=== PATIENT | male | born 1990 | race American Indian/Alaskan Native ===

== ENCOUNTER 2016-05-14 14:00 | Emergency (ER) | payer OTHER ==
[2016-05-14 14:16] VITALS: BP 134/88
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
== END 2016-05-14 20:13 | disposition home or self-care (01) ==
LOC: ED 14:00
DX: S39.012A Strain of muscle, fascia and tendon of lower back, initial encounter (principal); R51 Headache; V49.59XA Passenger injured in collision with other motor vehicles in traffic accident, initial encounter; Y93.9 Activity, unspecified; Y92.9 Unspecified place or not applicable; Y99.9 Unspecified external cause status
CPT/HCPCS: 99282

== ENCOUNTER 2017-04-04 03:25 | Emergency (ER) | payer SELFPAY ==
[2017-04-04 03:50] VITALS: BP 120/75
[2017-04-04] MEDS ORDERED: TORADOL IM ONE (04:06)
--- NOTE | 2017-04-04 04:10 | Emergency Department Report ---
ED ENT HPI - General Chief complaint: Dental/Oral Stated complaint: TOOTHACHE Time Seen by Provider: 04/04/17 04:03 Source: patient Mode of arrival: Ambulatory Limitations: No Limitations - History of Present Illness Initial comments: This is a 26-year-old male nontoxic, well nourished in appearance, no acute signs of distress presents to the ED with c/o of toothache x1 week. Patient denies any trauma to the region. Denies any facial swelling, difficulty breathing, nausea, vomiting, chest pain, breath, headache, stiff neck, fever, chills, numbness or tingling. Patient denies falling up with a dentist. Denies any allergies. Past medical history includes hypertension that he currently takes medication and follow-up with primary care doctor. MD complaint: tooth pain -: week(s) (1) Location: tooth # 1 - toothache Severity: mild Severity scale (0 -10): 8 Quality: aching Consistency: constant Improves with: none Worsens with: none Context- Dental: history of dental caries, poor dental care Associated Symptoms: gum swelling, toothache. denies: fever, cough, pain with swallowing, sore throat, tinnitus, hearing loss, discharge from ear, rhinorrhea - Related Data Previous Rx's Medication Instructions Recorded Last Taken Type Ibuprofen [Motrin] 600 mg PO Q8H PRN #15 tablet 05/14/16 Unknown Rx traMADol [Ultram] 50 mg PO Q6HR PRN #20 tablet 05/14/16 Unknown Rx Amoxicillin/K Clav Tab [Augmentin 1 tab PO Q12HR #20 tab 04/04/17 Unknown Rx 875 mg] traMADol [Ultram] 50 mg PO Q6HR PRN #12 tablet 04/04/17 Unknown Rx Allergies Allergy/AdvReac Type Severity Reaction Status Date / Time No Known Allergies Allergy Verified 04/04/17 03:46 ED Dental HPI - General Chief complaint: Dental/Oral Stated complaint: TOOTHACHE Time Seen by Provider: 04/04/17 04:03 Source: patient Mode of arrival: Ambulatory Limitations: No Limitations - Related Data Previous Rx's Medication Instructions Recorded Last Taken Type Ibuprofen [Motrin] 600 mg PO Q8H PRN #15 tablet 05/14/16 Unknown Rx traMADol [Ultram] 50 mg PO Q6HR PRN #20 tablet 05/14/16 Unknown Rx Amoxicillin/K Clav Tab [Augmentin 1 tab PO Q12HR #20 tab 04/04/17 Unknown Rx 875 mg] traMADol [Ultram] 50 mg PO Q6HR PRN #12 tablet 04/04/17 Unknown Rx Allergies Allergy/AdvReac Type Severity Reaction Status Date / Time No Known Allergies Allergy Verified 04/04/17 03:46 ED Review of Systems ROS: Stated complaint: TOOTHACHE Other details as noted in HPI Constitutional: denies: chills, fever Eyes: denies: eye pain, eye discharge, vision change ENT: dental pain. denies: ear pain, throat pain Respiratory: denies: cough, shortness of breath, wheezing Cardiovascular: denies: chest pain, palpitations Endocrine: no symptoms reported Gastrointestinal: denies: abdominal pain, nausea, diarrhea Genitourinary: denies: urgency, dysuria Musculoskeletal: denies: back pain, joint swelling, arthralgia Skin: denies: rash, lesions Neurological: denies: headache, weakness, paresthesias Psychiatric: denies: anxiety, depression Hematological/Lymphatic: denies: easy bleeding, easy bruising ED Past Medical Hx - Past Medical History Previous Medical History?: No - Surgical History Past Surgical History?: No - Social History Smoking Status: Current Every Day Smoker Substance Use Type: Alcohol - Medications Home Medications: Home Medications Medication Instructions Recorded Confirmed Last Taken Type Ibuprofen [Motrin] 600 mg PO Q8H PRN #15 tablet 05/14/16 Unknown Rx traMADol [Ultram] 50 mg PO Q6HR PRN #20 tablet 05/14/16 Unknown Rx Amoxicillin/K Clav Tab [Augmentin 1 tab PO Q12HR #20 tab 04/04/17 Unknown Rx 875 mg] traMADol [Ultram] 50 mg PO Q6HR PRN #12 tablet 04/04/17 Unknown Rx ED Physical Exam - General Limitations: No Limitations General appearance: alert, in no apparent distress - Head Head exam: Present: atraumatic, normocephalic - Eye Eye exam: Present: normal appearance, PERRL, EOMI. Absent: scleral icterus, conjunctival injection, nystagmus, periorbital swelling, periorbital tenderness Pupils: Present: normal accommodation - ENT ENT exam: Present: normal exam, normal orophraynx, mucous membranes moist, TM's normal bilaterally, normal external ear exam - Expanded ENT Exam Expanded Ear exam: Present: normal external inspection Mouth exam: Present: normal external inspection, tongue normal. Absent: drooling, trismus, muffled voice, tongue elevation, laceration Teeth exam: Present: dental caries, fractured tooth # (16), dental tenderness # (16), gingival enlargement, other (no swelling or abscesses noted.) Throat exam: Positive: normal inspection. Negative: tonsillar erythema, tonsillomegaly, tonsillar exudate, R peritonsillar mass, L peritonsillar mass - Neck Neck exam: Present: normal inspection - Respiratory Respiratory exam: Present: normal lung sounds bilaterally. Absent: respiratory distress, wheezes, rales, rhonchi, stridor, chest wall tenderness, accessory muscle use, decreased breath sounds, prolonged expiratory - Cardiovascular Cardiovascular Exam: Present: regular rate, normal rhythm, normal heart sounds. Absent: bradycardia, tachycardia, irregular rhythm, systolic murmur, diastolic murmur, rubs, gallop - GI/Abdominal GI/Abdominal exam: Present: soft, normal bowel sounds. Absent: distended, tenderness, guarding, rebound, rigid, diminished bowel sounds - Rectal Rectal exam: Present: deferred - Extremities Exam Extremities exam: Present: normal inspection, full ROM, normal capillary refill. Absent: tenderness, pedal edema, joint swelling, calf tenderness - Back Exam Back exam: Present: normal inspection, full ROM. Absent: tenderness, CVA tenderness (R), muscle spasm, paraspinal tenderness, vertebral tenderness, rash noted - Neurological Exam Neurological exam: Present: alert, oriented X3, CN II-XII intact, normal gait, reflexes normal - Psychiatric Psychiatric exam: Present: normal affect, normal mood - Skin Skin exam: Present: warm, dry, intact, normal color. Absent: rash ED Course Vital Signs 04/04/17 03:46 Temperature 98 F Pulse Rate 65 Respiratory 16 Rate Blood Pressure 120/75 O2 Sat by Pulse 98 Oximetry - Reevaluation(s) Reevaluation #1: 04/04/17 04:10 Patient is speaking in full sentences with no signs of distress noted. ED Medical Decision Making - Medical Decision Making This is a 26-year-old male that presents with dental caries and gingivitis. Patient stable and was examined by me. Patient states Toradol 30 mg IM to ED. Patient received Augmentin at discharge. There is no signs of any cellulitis or abscess formation upon examination. Patient was instructed Follow-up with a primary care doctor/dentist in 3-5 days or if symptoms worsen and continue return to emergency room as soon as possible. At time time of discharge, the patient does not seem toxic or ill in appearance. No acute signs of distress noted. Patient agrees to discharge treatment plan of care. No further questions noted by the patient. Patient received Ultram at discharge and was instructed not to operate any machinery while taking Ultram due to drowsiness. Critical care attestation.: If time is entered above; I have spent that time in minutes in the direct care of this critically ill patient, excluding procedure time. ED Disposition Clinical Impression: Dental caries, Gingivitis Disposition: - TO HOME OR SELFCARE Is pt being admited?: No Does the pt Need Aspirin: No Condition: Stable Instructions: Amoxicillin/Clavulanate Potassium (By mouth), Tramadol (By mouth) , Dental Caries (ED), Gingivitis (ED) Additional Instructions: Follow-up with a primary care doctor/dentist in 3-5 days or if symptoms worsen and continue return to emergency room as soon as possible. Do not operate any machinery while taking the Ultram due to drowsiness. Prescriptions: Amoxicillin/K Clav Tab [Augmentin 875 mg] 1 tab PO Q12HR #20 tab traMADol [Ultram] 50 mg PO Q6HR PRN #12 tablet PRN Reason: Pain Referrals: CHAMP DIEZ MD [Staff Physician] - 3-5 Days PRIMARY CARE, [Referring] - 3-5 Days [facility] [Outside] - 3-5 Days Forms: Work/School Release Form(ED)
== END 2017-04-04 04:25 | disposition home or self-care (01) ==
LOC: ED 03:25
DX: K02.9 Dental caries, unspecified (principal); K05.10 Chronic gingivitis, plaque induced; F17.200 Nicotine dependence, unspecified, uncomplicated
CPT/HCPCS: 96372; 99282; J1885

== ENCOUNTER 2019-04-26 19:32 | Emergency (ER) | payer SELFPAY ==
[2019-04-26 20:17] VITALS: BP 152/73
--- NOTE | 2019-04-26 20:17 | Emergency Department Report ---
Blank Doc - Documentation Documentation: 28-year-old male that presents with abdominal pain and n/v. This initial assessment/diagnostic orders/clinical plan/treatment(s) is/are subject to change based on patient's health status, clinical progression and re- assessment by fellow clinical providers in the ED. Further treatment and workup at subsequent clinical providers discretion. Patient/guardians urged not to elope from the ED as their condition may be serious if not clinically assessed and managed. Initial orders include: 1- Patient sent to [facility] for further evaluation and treatment 2- labs 3- UA
[2019-04-26 21:30] LABS: Basophils # (Auto) 0.1 K/mm3 (0.0-0.1); Basophils % (Auto) 0.7 % (0.0-1.8); Eosinophils # (Auto) 0.1 K/mm3 (0.0-0.4); Eosinophils % (Auto) 0.9 % (0.0-4.3); Hematocrit 47.7 % (35.5-45.6); Hemoglobin 16.6 gm/dl (11.8-15.2); Lymphocytes # (Auto) 1.7 K/mm3 (1.2-5.4); Lymphocytes % (Auto) 23.9 % (13.4-35.0); Mean Corpuscular HGB Conc 35 % (32-34); Mean Corpuscular Volume 92 fl (84-94); Monocytes # (Auto) 0.6 K/mm3 (0.0-0.8); Monocytes % (Auto) 7.8 % (0.0-7.3); Platelet Count 249 K/mm3 (140-440); Red Blood Count 5.19 M/mm3 (3.65-5.03)
[2019-04-26 22:00] LABS: Alanine Aminotransferase 20 units/L (7-56); Albumin 3.5 g/dL (3.9-5); BUN/Creatinine Ratio 6; Blood Urea Nitrogen 7 mg/dL (9-20); Calcium 9.1 mg/dL (8.4-10.2); Hemolysis Index 58
[2019-04-26 22:22] LABS: Bilirubin,Urine NEG (Negative); Color,Urine Amber (Yellow)
[2019-04-26 22:23] LABS: Blood,Urine NEG (Negative); Mucus,Urine 3+ /HPF; Protein,Urine <15 mg/dL mg/dL (Negative); Urobilinogen,Urine < 2.0 mg/dL (<2.0)
[2019-04-27] MEDS ORDERED: SODIUM CHLORIDE 0.9% 1000 ML 1,000 ML IV ONE (00:16)
[2019-04-27] MEDS ORDERED: ONDANSETRON 4 MG/2 ML INJ IV ONE (00:16)
[2019-04-27] MEDS ORDERED: MORPHINE 4 MG/1 ML INJ IV ONE (00:55)
[2019-04-27] MEDS ORDERED: MORPHINE 4 MG/1 ML INJ ONE (00:56)
--- NOTE | 2019-04-27 01:21 | Cat Scan Report ---
CT ABDOMEN AND PELVIS WITHOUT CONTRAST INDICATION: Upper abdominal pain, nausea and vomiting. TECHNICAL: Multiple axial CT images of the abdomen and pelvis were acquired without intravenous contr ast. Sagittal and coronal reformats were obtained. All CTs at this facility utilize dose reduction techniques including automated exposure control, iterative reconstruction and weight based dosing whe n appropriate to reduce patient radiation dose to as low as reasonable achievable. COMPARISON: None FINDINGS: Limited imaging of the bilateral lung bases demonstrates no acute abnormality. Abdomen: The liver, spleen, gallbladder, pancreas, bilateral adrenal glands and bilateral kidneys katelyn w no evidence of acute abnormality. There is no evidence of bowel obstruction. No free air is identif ied. The appendix is visualized and appears normal. Pelvis: No free fluid is seen within the pelvis. The urinary bladder appears normal. Bones and Soft Tissues: Evaluation of bony structures demonstrates no evidence of acute bony abnorma lity. There are a few subcentimeter indeterminate sclerotic lesions within the left iliac wing, the l argest of which measures 5 mm. Evaluation of soft tissue structures demonstrates no acute soft tissue abnormality. IMPRESSION: 1. No CT evidence of acute inflammatory or obstructive process within the abdomen or pelvis. Signer Name: Jennifer Valencia MD Signed: 04/27/2019 1:16 AM Workstation Name: [id number]
--- NOTE | 2019-04-27 01:39 | Emergency Department Report ---
ED Abdominal Pain HPI - General Chief Complaint: Abdominal Pain Stated Complaint: STOMACH PAIN Time Seen by Provider: 04/26/19 20:15 Source: patient Mode of arrival: Ambulatory Limitations: No Limitations - History of Present Illness Initial Comments: Ms. Espana is a 28 y/o aam who -presents fort abd pain periumbilical that radiates to LLQ x 1 week, symptoms are exacerbated by eating, symptoms are relieved by rest. pt denies fever or chills. Last n/v yesterday, last po intake lunch time today. last n/v 3 pm Complaint: abdominal pain Onset/Timin -: week(s) Location: periumbilical Radiation: LLQ Severity: moderate Severity scale (0 -10): 5 Quality: aching Consistency: constant Improves With: nothing Worsens With: eating Associated Symptoms: nausea, vomiting. denies: diarrhea, constipation, melena - Related Data Previous Rx's Medication Instructions Recorded Last Taken Type Ibuprofen [Motrin] 600 mg PO Q8H PRN #15 tablet 05/14/16 Unknown Rx traMADoL [Ultram] 50 mg PO Q6HR PRN #20 tablet 05/14/16 Unknown Rx Amoxicillin/K Clav Tab [Augmentin 1 tab PO Q12HR #20 tab 04/04/17 Unknown Rx 875 mg] traMADoL [Ultram] 50 mg PO Q6HR PRN #12 tablet 04/04/17 Unknown Rx Dicyclomine [Bentyl] 10 mg PO QID PRN #30 capsule 04/27/19 Unknown Rx Naproxen 500 mg PO BID PRN #30 tablet 04/27/19 Unknown Rx Ondansetron [Zofran Odt] 4 mg PO Q8HR PRN #12 tab.rapdis 04/27/19 Unknown Rx Allergies Allergy/AdvReac Type Severity Reaction Status Date / Time No Known Allergies Allergy Verified 04/04/17 03:46 ED Review of Systems ROS: Stated complaint: STOMACH PAIN Other details as noted in HPI Constitutional: denies: chills, fever Eyes: denies: eye pain, eye discharge, vision change ENT: denies: ear pain, throat pain Respiratory: denies: cough, shortness of breath, wheezing Cardiovascular: denies: chest pain, palpitations Endocrine: no symptoms reported Gastrointestinal: abdominal pain, nausea, vomiting. denies: diarrhea, con stipation, hematemesis, melena, hematochezia Genitourinary: denies: urgency, dysuria, frequency, hematuria Musculoskeletal: denies: back pain, joint swelling, arthralgia, myalgia Skin: denies: rash, lesions Neurological: denies: headache, weakness, paresthesias Psychiatric: denies: anxiety, depression Hematological/Lymphatic: denies: easy bleeding, easy bruising ED Past Medical Hx - Past Medical History Previous Medical History?: No - Surgical History Past Surgical History?: No - Social History Smoking Status: Current Some Day Smoker Substance Use Type: Marijuana - Medications Home Medications: Home Medications Medication Instructions Recorded Confirmed Last Taken Type Ibuprofen [Motrin] 600 mg PO Q8H PRN #15 tablet 05/14/16 Unknown Rx traMADoL [Ultram] 50 mg PO Q6HR PRN #20 tablet 05/14/16 Unknown Rx Amoxicillin/K Clav Tab [Augmentin 1 tab PO Q12HR #20 tab 04/04/17 Unknown Rx 875 mg] traMADoL [Ultram] 50 mg PO Q6HR PRN #12 tablet 04/04/17 Unknown Rx Dicyclomine [Bentyl] 10 mg PO QID PRN #30 capsule 04/27/19 Unknown Rx Naproxen 500 mg PO BID PRN #30 tablet 04/27/19 Unknown Rx Ondansetron [Zofran Odt] 4 mg PO Q8HR PRN #12 tab.rapdis 04/27/19 Unknown Rx ED Physical Exam - General Limitations: No Limitations General appearance: alert, in no apparent distress - Head Head exam: Present: atraumatic, normocephalic - Eye Eye exam: Present: normal appearance, PERRL, EOMI Pupils: Present: normal accommodation - ENT ENT exam: Present: mucous membranes moist - Neck Neck exam: Present: normal inspection, full ROM. Absent: tenderness - Respiratory Respiratory exam: Present: normal lung sounds bilaterally. Absent: respiratory distress, wheezes, stridor, chest wall tenderness - Cardiovascular Cardiovascular Exam: Present: regular rate, normal rhythm, normal heart sounds. Absent: systolic murmur, diastolic murmur, rubs, gallop - GI/Abdominal GI/Abdominal exam: Present: soft, tenderness (periumbilical), normal bowel sounds. Absent: guarding, rebound, rigid, bruit, hernia - Expanded GI/Abdominal Exam Expanded GI/Abdominal exam: Present: Rovsing's sign. Absent: psoas sign, obturator sign, heel tap sign, Pfeiffer's sign, tenderness at [place]'s [place], ascites - Rectal Rectal exam: Present: deferred - Extremities Exam Extremities exam: Present: normal inspection - Back Exam Back exam: Present: normal inspection, full ROM. Absent: tenderness, CVA tenderness (R), CVA tenderness (L) - Neurological Exam Neurological exam: Present: alert, oriented X3, CN II-XII intact, normal gait - Psychiatric Psychiatric exam: Present: normal affect, normal mood - Skin Skin exam: Present: warm, dry, intact, normal color. Absent: rash ED Course Vital Signs 04/26/19 04/27/19 19:35 01:02 Temperature 99.0 F Pulse Rate 94 H Respiratory 18 18 Rate Blood Pressure 152/73 O2 Sat by Pulse 98 Oximetry ED Medical Decision Making - Lab Data Result diagrams: 04/26/19 20:49 04/26/19 20:49 Labs 04/26/19 04/26/19 04/26/19 20:49 20:49 21:52 WBC 7.3 RBC 5.19 H Hgb 16.6 H Hct 47.7 H MCV 92 MCH 32 MCHC 35 H RDW 13.0 L Plt Count 249 Lymph % (Auto) 23.9 [place] % (Auto) 7.8 H Eos % (Auto) 0.9 Baso % (Auto) 0.7 Lymph # 1.7 [place] # 0.6 Eos # 0.1 Baso # 0.1 Seg Neutrophils % 66.7 Seg Neutrophils # 4.8 Sodium 136 L Potassium 4.5 Chloride 102.3 Carbon Dioxide 17 L Anion Gap 21 BUN 7 L Creatinine 1.1 Estimated GFR > 60 BUN/Creatinine Ratio 6 Glucose 78 Calcium 9.1 Total Bilirubin 0.50 AST 22 ALT 20 Alkaline Phosphatase 80 Total Protein 5.7 L Albumin 3.5 L Albumin/Globulin Ratio 1.6 Lipase 72 H Urine Color Meg Urine Turbidity Clear Urine pH 5.0 Ur Specific [place] 1.028 Urine Protein <15 mg/dl Urine Glucose (UA) Neg Urine Ketones 20 Urine Blood Neg Urine Nitrite Neg Urine Bilirubin Neg Urine Urobilinogen < 2.0 Ur Leukocyte Esterase Neg Urine WBC (Auto) 4.0 Urine RBC (Auto) 3.0 Urine Mucus 3+ - Radiology Data Radiology results: report reviewed, image reviewed Ordering Physician: MIKIE SANCHEZ NP Date of Service: 04/27/19 Procedure(s): CT abdomen pelvis w con Accession Number(s): [id number] cc: MIKIE SANCHEZ NP CT ABDOMEN AND PELVIS WITHOUT CONTRAST INDICATION: Upper abdominal pain, nausea and vomiting. TECHNICAL: Multiple axial CT images of the abdomen and pelvis were acquired without intravenous contrast. Sagittal and coronal reformats were obtained. All CTs at this facility utilize dose reduction techniques including automated exposure control, iterative reconstruction and weight based dosing when appropriate to reduce patient radiation dose to as low as reasonable achievable. COMPARISON: None FINDINGS: Limited imaging of the bilateral lung bases demonstrates no acute abnormality. Abdomen: The liver, spleen, gallbladder, pancreas, bilateral adrenal glands and bilateral kidneys show no evidence of acute abnormality. There is no evidence of bowel obstruction. No free air is identified. The appendix is visualized and appears normal. Pelvis: No free fluid is seen within the pelvis. The urinary bladder appears normal. Bones and Soft Tissues: Evaluation of bony structures demonstrates no evidence of acute bony abnormality. There are a few subcentimeter indeterminate sclerotic lesions within the left iliac wing, the largest of which measures 5 mm. Evaluation of soft tissue structures demonstrates no acute soft tissue abnormality. IMPRESSION: 1. No CT evidence of acute inflammatory or obstructive process within the abdomen or pelvis. Signer Name: Jennifer Valencia MD Signed: 04/27/2019 1:16 AM Workstation Name: [id number] Transcribed By: EB Dictated By: Jennifer Valencia MD Electronically Authenticated By: Jennifer Valencia MD Signed Date/Time: 04/27/19115 DD/ 0 TD/TT: - Medical Decision Making ct abd pelvis no obstruction , no bleed, pain is relieved with medications given in ed, plan: zofran, bentyl, naproxen , hydrate follow up with pcp in 2-3 days return to emergency if symptoms worsen Critical care attestation.: If time is entered above; I have spent that time in minutes in the direct care of this critically ill patient, excluding procedure time. ED Disposition Clinical Impression: Abdominal pain Qualifiers: Abdominal location: periumbilical Qualified Code(s): R10.33 - Periumbilical pain Nausea & vomiting Qualifiers: Vomiting type: unspecified Vomiting Intractability: non-intractable Qualified Code(s): R11.2 - Nausea with vomiting, unspecified Disposition: TO HOME OR SELFCARE Is pt being admited?: No Does the pt Need Aspirin: No Condition: Stable Instructions: Acute Nausea and Vomiting (ED), Abdominal Pain (ED) Prescriptions: Dicyclomine [Bentyl] 10 mg PO QID PRN #30 capsule PRN Reason: abdominal spasm Naproxen 500 mg PO BID PRN #30 tablet PRN Reason: pain Ondansetron [Zofran Odt] 4 mg PO Q8HR PRN #12 tab.rapdis PRN Reason: Nausea And Vomiting Referrals: LUIS ALBERTO JOYA MD [Staff Physician] - 3-5 Days Forms: Work/School Release Form(ED) Time of Disposition: 01:49
== END 2019-04-27 02:02 | disposition home or self-care (01) ==
LOC: ED 19:32
DX: R10.33 Periumbilical pain (principal); R11.2 Nausea with vomiting, unspecified; F17.200 Nicotine dependence, unspecified, uncomplicated; F12.10 Cannabis abuse, uncomplicated; Z79.899 Other long term (current) drug therapy
CPT/HCPCS: 36415; 74177; 80053; 81001; 83690; 85025; 96361; 96374; 96375; 99284; J2270; J2405; J7030; Q9967

== ENCOUNTER 2019-06-01 18:40 | Emergency (ER) | payer SELFPAY ==
--- NOTE | 2019-06-01 21:52 | Event Note ---
ED Screening Note Date of service: 06/01/19 Time: 21:49 ED Screening Note: 28 y/o male comes in for epigastric burning pain times 2 days. having vomiting. PMH O meds none. Admits to smoking WEED. This initial assessment/diagnostic orders/clinical plan/treatment(s) is/are subject to change based on patients health status, clinical progression and re- assessment by fellow clinical providers in the ED. Further treatment and workup at subsequent clinical providers discretion. Patient/guardian urged not to elope from the ED as their condition may be serious if not clinically assessed and managed. Initial orders include:
[2019-06-01 22:18] LABS: Basophils # (Auto) 0.1 K/mm3 (0.0-0.1); Basophils % (Auto) 0.5 % (0.0-1.8); Eosinophils % (Auto) 0.3 % (0.0-4.3); Hematocrit 56.9 % (35.5-45.6); Lymphocytes # (Auto) 1.6 K/mm3 (1.2-5.4); Mean Corpuscular HGB Conc 34 % (32-34); Mean Corpuscular Volume 90 fl (84-94); Monocytes # (Auto) 0.8 K/mm3 (0.0-0.8); Monocytes % (Auto) 6.1 % (0.0-7.3); Platelet Count 398 K/mm3 (140-440); Red Blood Count 6.29 M/mm3 (3.65-5.03); Red Cell Distribution Width 12.6 % (13.2-15.2)
[2019-06-01 22:41] LABS: Alanine Aminotransferase 21 units/L (7-56); Albumin 4.3 g/dL (3.9-5); BUN/Creatinine Ratio 12; Blood Urea Nitrogen 16 mg/dL (9-20); Calcium 10.3 mg/dL (8.4-10.2); Hemolysis Index 10
[2019-06-01] MEDS ORDERED: FAMOTIDINE 20 MG/2 ML INJ IV ONE (23:03)
[2019-06-01] MEDS ORDERED: ALUM-MAG HYDROXIDE-SIMETHICONE 200-200-20MG/5ML ORAL LIQD 30 ML PO ONE (23:03)
[2019-06-01] MEDS ORDERED: SODIUM CHLORIDE 0.9% 1000 ML 1,000 ML IV ONE (23:03)
[2019-06-01] MEDS ORDERED: LIDOCAINE VISCOUS 2% 15 ML ORAL LIQD PO ONE (23:03)
[2019-06-01] MEDS ORDERED: ONDANSETRON 4 MG/2 ML INJ IV ONE (23:03)
[2019-06-01] MEDS ORDERED: MORPHINE 4 MG/1 ML INJ IV ONE (23:04)
--- NOTE | 2019-06-01 23:12 | Emergency Department Report ---
ED Abdominal Pain HPI - General Chief Complaint: Abdominal Pain Stated Complaint: ULCER Time Seen by Provider: 06/01/19 21:49 Source: patient Mode of arrival: Ambulatory Limitations: No Limitations - History of Present Illness Initial Comments: Mr. Espana is a 28-year-old male with a history of marijuana use he has burning sensation to his chest epigastric region and nausea. Symptoms have lasted for several days since Friday. He feels that he lost possibly 10 pounds. He had similar episode in April treated here in emergency department. Burn ing sensation with improvement with Pepto-Bismol. Marijuana does help the pain but the symptoms quickly returned. Denies fever. No history of abdominal surgery. April of this year last month, he underwent CT abdomen pelvis without contrast which did not reveal any acute inflammatory obstructive process within the abdomen or pelvis. MD Complaint: abdominal pain -: Gradual, days(s) (2) Location: epigastric Radiation: other (chest) Severity: severe Consistency: constant Improves With: medication (Pepto-Bismol) Associated Symptoms: nausea - Related Data Previous Rx's Medication Instructions Recorded Last Taken Type Ibuprofen [Motrin] 600 mg PO Q8H PRN #15 tablet 05/14/16 Unknown Rx traMADoL [Ultram] 50 mg PO Q6HR PRN #20 tablet 05/14/16 Unknown Rx Amoxicillin/K Clav Tab [Augmentin 1 tab PO Q12HR #20 tab 04/04/17 Unknown Rx 875 mg] traMADoL [Ultram] 50 mg PO Q6HR PRN #12 tablet 04/04/17 Unknown Rx Dicyclomine [Bentyl] 10 mg PO QID PRN #30 capsule 04/27/19 Unknown Rx Naproxen 500 mg PO BID PRN #30 tablet 04/27/19 Unknown Rx Ondansetron [Zofran Odt] 4 mg PO Q8HR PRN #12 tab.rapdis 04/27/19 Unknown Rx Famotidine [Pepcid] 20 mg PO BID 30 Days #60 tablet 06/01/19 Unknown Rx Promethazine [Phenergan] 25 mg PO Q6HR PRN #10 tab 06/01/19 Unknown Rx Allergies Allergy/AdvReac Type Severity Reaction Status Date / Time No Known Allergies Allergy Verified 04/04/17 03:46 ED Review of Systems ROS: Stated complaint: ULCER Other details as noted in HPI Comment: All other systems reviewed and negative Constitutional: denies: see HPI, fever Respiratory: denies: cough Cardiovascular: chest pain Gastrointestinal: abdominal pain, nausea ED Past Medical Hx - Past Medical History Previous Medical History?: No - Surgical History Past Surgical History?: No - Social History Smoking Status: Never Smoker Substance Use Type: Marijuana - Medications Home Medications: Home Medications Medication Instructions Recorded Confirmed Last Taken Type Ibuprofen [Motrin] 600 mg PO Q8H PRN #15 tablet 05/14/16 Unknown Rx traMADoL [Ultram] 50 mg PO Q6HR PRN #20 tablet 05/14/16 Unknown Rx Amoxicillin/K Clav Tab [Augmentin 1 tab PO Q12HR #20 tab 04/04/17 Unknown Rx 875 mg] traMADoL [Ultram] 50 mg PO Q6HR PRN #12 tablet 04/04/17 Unknown Rx Dicyclomine [Bentyl] 10 mg PO QID PRN #30 capsule 04/27/19 Unknown Rx Naproxen 500 mg PO BID PRN #30 tablet 04/27/19 Unknown Rx Ondansetron [Zofran Odt] 4 mg PO Q8HR PRN #12 tab.rapdis 04/27/19 Unknown Rx Famotidine [Pepcid] 20 mg PO BID 30 Days #60 tablet 06/01/19 Unknown Rx Promethazine [Phenergan] 25 mg PO Q6HR PRN #10 tab 06/01/19 Unknown Rx ED Physical Exam - General Limitations: No Limitations General appearance: alert, in no apparent distress - Head Head exam: Present: atraumatic, normocephalic - Eye Eye exam: Present: normal appearance - ENT ENT exam: Present: mucous membranes moist - Neck Neck exam: Present: normal inspection, full ROM - Respiratory Respiratory exam: Present: normal lung sounds bilaterally. Absent: respiratory distress, wheezes, rales, rhonchi - Cardiovascular Cardiovascular Exam: Present: regular rate, normal rhythm, normal heart sounds. Absent: systolic murmur, diastolic murmur, rubs, gallop - GI/Abdominal GI/Abdominal exam: Present: soft, normal bowel sounds. Absent: distended, tenderness, guarding, rebound - Rectal Rectal exam: Present: deferred - Extremities Exam Extremities exam: Present: normal inspection - Neurological Exam Neurological exam: Present: alert, oriented X3 - Psychiatric Psychiatric exam: Present: normal affect, normal mood - Skin Skin exam: Present: warm, dry, intact, normal color. Absent: rash ED Course Vital Signs 06/01/19 18:53 Temperature 98.6 F Pulse Rate 92 H Respiratory 18 Rate Blood Pressure 122/76 O2 Sat by Pulse 95 Oximetry ED Medical Decision Making - Lab Data Result diagrams: 06/01/19 22:01 06/01/19 22:01 Laboratory Results - last 24 hr 06/01/19 06/01/19 22:01 22:01 WBC 13.0 H RBC 6.29 H Hgb 19.0 H Hct 56.9 H MCV 90 MCH 30 MCHC 34 RDW 12.6 L Plt Count 398 Lymph % (Auto) 12.0 L [place] % (Auto) 6.1 Eos % (Auto) 0.3 Baso % (Auto) 0.5 Lymph # 1.6 [place] # 0.8 Eos # 0.0 Baso # 0.1 Seg Neutrophils % 81.1 H Seg Neutrophils # 10.5 H Sodium 140 Potassium 4.1 Chloride 94.8 L Carbon Dioxide 26 Anion Gap 23 BUN 16 Creatinine 1.3 Estimated GFR > 60 BUN/Creatinine Ratio 12 Glucose 134 H Calcium 10.3 H Total Bilirubin 0.40 AST 23 ALT 21 Alkaline Phosphatase 112 Total Protein 8.0 Albumin 4.3 Albumin/Globulin Ratio 1.2 Lipase 179 H - Medical Decision Making Mr. Espana presents with symptoms concerning for GERD inflammatory versus infectious esophagitis versus cannabinoid hyperemesis syndrome. Reviewed labs which showed elevated hemoglobin hematocrit revealing volume contraction. Leukocytosis appears to be reactive. Mild hypochloremia. I do not detect any abdominal tenderness. I do not suspect acute intra-abdominal inflammatory process such as pancreatitis or appendicitis. He received IV fluids, IV antiemetics, IV famotidine. Also received oral antacid and viscous lidocaine. Prescribed famotidine. And promethazine recommended cessation from marijuana use. He has used marijuana for several years. Referral to outside clinic. Critical care attestation.: If time is entered above; I have spent that time in minutes in the direct care of this critically ill patient, excluding procedure time. ED Disposition Clinical Impression: GERD (gastroesophageal reflux disease), Esophagitis Disposition: DC- TO HOME OR SELFCARE Is pt being admited?: No Does the pt Need Aspirin: No Condition: Stable Instructions: Diet for Ulcers and Gastritis (ED) Prescriptions: Famotidine [Pepcid] 20 mg PO BID 30 Days #60 tablet Promethazine [Phenergan] 25 mg PO Q6HR PRN #10 tab PRN Reason: Nausea Referrals: CHELSEA RUSH MD [Staff Physician] - 3-5 Days Forms: Work/School Release Form(ED)
[2019-06-01 23:22] VITALS: BP 146/90
== END 2019-06-02 00:16 | disposition home or self-care (01) ==
LOC: ED 18:40
DX: K21.9 Gastro-esophageal reflux disease without esophagitis (principal); K20.9 Esophagitis, unspecified; F12.10 Cannabis abuse, uncomplicated; Z79.899 Other long term (current) drug therapy
CPT/HCPCS: 36415; 80053; 83690; 85025; 96374; 96375; 99283; J2270; J2405; J7030

== ENCOUNTER 2019-09-05 18:08 | Inpatient (IN) | payer OTHER ==
--- NOTE | 2019-09-05 18:57 | Emergency Department Report ---
ED Abdominal Pain HPI - General Chief Complaint: Abdominal Pain Stated Complaint: ABD PAIN Time Seen by Provider: 09/05/19 18:54 Source: patient, RN notes reviewed, old records reviewed Mode of arrival: Ambulatory Limitations: No Limitations - History of Present Illness Initial Comments: 28-year-old -[place]in[place] male presents to the emergency room for chronic ongoing abdominal pain with nausea and vomiting. Patient states that the pain is located in the epigastric area. Patient states that he has been nausea and vomiting since Friday. Patient admits to smoking weed. Patient never followed up with GI that was recommended to him 2 times in the past 4 months. Patient denies any past medical history currently takes no medications on a daily basis has no known drug allergies. Smokes cigarettes and smokes marijuana. MD Complaint: abdominal pain Onset/Timin -: days(s) Location: epigastric Migration to: no migration Severity: severe Severity scale (0 -10): 9 Quality: stabbing, sharp Consistency: constant Improves With: nothing Worsens With: nothing Associated Symptoms: nausea, vomiting. denies: diarrhea, fever, chills, constipation - Related Data Previous Rx's Medication Instructions Recorded Last Taken Type Ibuprofen [Motrin] 600 mg PO Q8H PRN #15 tablet 05/14/16 Unknown Rx traMADoL [Ultram] 50 mg PO Q6HR PRN #20 tablet 05/14/16 Unknown Rx Amoxicillin/K Clav Tab [Augmentin 1 tab PO Q12HR #20 tab 04/04/17 Unknown Rx 875 mg] traMADoL [Ultram] 50 mg PO Q6HR PRN #12 tablet 04/04/17 Unknown Rx Dicyclomine [Bentyl] 10 mg PO QID PRN #30 capsule 04/27/19 Unknown Rx Naproxen 500 mg PO BID PRN #30 tablet 04/27/19 Unknown Rx Ondansetron [Zofran Odt] 4 mg PO Q8HR PRN #12 tab.rapdis 04/27/19 Unknown Rx Famotidine [Pepcid] 20 mg PO BID 30 Days #60 tablet 06/01/19 Unknown Rx Promethazine [Phenergan] 25 mg PO Q6HR PRN #10 tab 06/01/19 Unknown Rx Allergies Allergy/AdvReac Type Severity Reaction Status Date / Time No Known Allergies Allergy Verified 04/04/17 03:46 ED Review of Systems ROS: Stated complaint: ABD PAIN Other details as noted in HPI Comment: All other systems reviewed and negative ED Past Medical Hx - Past Medical History Previous Medical History?: Yes Additional medical history: chronic abd pain - Social History Smoking Status: Never Smoker Substance Use Type: Marijuana - Medications Home Medications: Home Medications Medication Instructions Recorded Confirmed Last Taken Type Ibuprofen [Motrin] 600 mg PO Q8H PRN #15 tablet 05/14/16 Unknown Rx traMADoL [Ultram] 50 mg PO Q6HR PRN #20 tablet 05/14/16 Unknown Rx Amoxicillin/K Clav Tab [Augmentin 1 tab PO Q12HR #20 tab 04/04/17 Unknown Rx 875 mg] traMADoL [Ultram] 50 mg PO Q6HR PRN #12 tablet 04/04/17 Unknown Rx Dicyclomine [Bentyl] 10 mg PO QID PRN #30 capsule 04/27/19 Unknown Rx Naproxen 500 mg PO BID PRN #30 tablet 04/27/19 Unknown Rx Ondansetron [Zofran Odt] 4 mg PO Q8HR PRN #12 tab.rapdis 04/27/19 Unknown Rx Famotidine [Pepcid] 20 mg PO BID 30 Days #60 tablet 06/01/19 Unknown Rx Promethazine [Phenergan] 25 mg PO Q6HR PRN #10 tab 06/01/19 Unknown Rx ED Physical Exam - General Limitations: No Limitations General appearance: alert, cachectic - Head Head exam: Present: atraumatic, normocephalic - Eye Eye exam: Present: other (Sunken in) - ENT ENT exam: Present: mucous membranes moist - Cardiovascular Cardiovascular Exam: Present: regular rate, normal rhythm. Absent: systolic murmur, diastolic murmur, rubs, gallop - GI/Abdominal GI/Abdominal exam: Present: soft, tenderness, guarding. Absent: distended - Back Exam Back exam: Present: normal inspection, full ROM - Neurological Exam Neurological exam: Present: alert, oriented X3, normal gait - Psychiatric Psychiatric exam: Present: normal affect, normal mood - Skin Skin exam: Present: warm, dry, intact, normal color. Absent: rash ED Course Vital Signs 09/05/19 09/05/19 09/06/19 18:12 23:09 02:52 Temperature 98.2 F 98.3 F 98 F Pulse Rate 84 52 L 63 Respiratory 20 18 18 Rate Blood Pressure 134/84 Blood Pressure 121/58 137/78 [Right] O2 Sat by Pulse 96 98 99 Oximetry 09/06/19 04:48 Temperature 98.2 F Pulse Rate 52 L Respiratory 18 Rate Blood Pressure Blood Pressure 141/91 [Right] O2 Sat by Pulse 99 Oximetry ED Medical Decision Making - Lab Data Result diagrams: 09/06/19 02:46 09/06/19 02:46 - Radiology Data Radiology results: report reviewed Referring Physician:KARYN BURRELLPatient Name:ADRIANA AKINSPatient ID:[id number] of :[id number]:MaleAccession:[id number] Date:[id number] Status:Finalized Findings [address] [address] Cat Scan Report Signed Patient: ADRIANA AKINS II R#: [id number] : 1990 Acct:[id number] Age/Sex: 28 / M ADM Date: 09/05/19 Loc: ED Attending Dr: Ordering Physician: BRIGID DENNISON Date of Service: 09/05/19 Procedure(s): CT abdomen pelvis wo con Accession Number(s): [id number] cc: BRIGID DENNISON CT of the abdomen and pelvis without contrast INDICATION: Epigastric pain today COMPARISON: 04/27/2019 FINDINGS: The liver, spleen, pancreas, adrenal glands and kidneys all appear normal. No definite gallbladder or biliary tree abnormality. No fluid or adenopathy in the upper abdomen. No gastric wall thickening or perigastric inflammation. CT of the pelvis shows a tubular structure in the right lower quadrant measuring 1.2 cm that may be the appendix but this is not definite. There is no surrounding inflammation however. No pelvic fluid or adenopathy. No diverticulosis or diverticulitis. No hernia or bowel obstruction. No significant skeletal lesion. IMPRESSION: May be a prominent appendix without inflammation. Clinical correlation will be necessary. Otherwise no abnormality. Automated exposure control was utilized to diminish radiation dose. Signer Name: Andrzej Gomez MD Signed: 09/05/2019 9:25 PM Workstation Name: [id number] Transcribed By: ELIANA Dictated By: Andrzej Gomez MD Electronically Authenticated By: Andrzej Gomez MD Signed Date/Time: 09/05/192124 DD/ 11 TD/TT: - Medical Decision Making 28-year-old -[place]in[place] male presents to the emergency room for chronic ongoing abdominal pain with nausea and vomiting. Patient states that the pain is located in the epigastric area. Patient states that he has been nausea and vomiting since Friday. Patient admits to smoking weed. Patient never followed up with GI that was recommended to him 2 times in the past 4 months. Patient denies any past medical history currently takes no medications on a daily basis has no known drug allergies. Smokes cigarettes and smokes marijuana. CBC, CMP, lipase. Zofran, Maalox, famotidine. IV normal saline. Spoke to Dr. Perez regarding patient needing to be admitted. Spoke to regarding admission. He is requesting bridge orders and a repeat B MP. Patient has been ordered also morphine 4 mg IV and Zofran 4 mg IV for pain and nausea. Critical care attestation.: If time is entered above; I have spent that time in minutes in the direct care of this critically ill patient, excluding procedure time. ED Disposition Clinical Impression: Hyperkalemia, Acute epigastric pain, Acute kidney injury, Dehydration, Leukocytosis Disposition: OP ADMIT IP TO THIS HOSP Is pt being admited?: Yes Does the pt Need Aspirin: Yes Condition: Stable
[2019-09-05] MEDS ORDERED: ONDANSETRON 4 MG ODT TAB PO ONE (19:10)
[2019-09-05] MEDS ORDERED: ALUM-MAG HYDROXIDE-SIMETHICONE 200-200-20MG/5ML ORAL LIQD 30 ML PO ONE (19:12)
[2019-09-05] MEDS ORDERED: FAMOTIDINE 20 MG TAB PO ONE (19:12)
[2019-09-05] MEDS ORDERED: SODIUM CHLORIDE 0.9% 1000 ML 1,000 ML IV ONE ×2 (19:25→20:20)
[2019-09-05 19:36] LABS: Basophils # (Auto) 0.1 K/mm3 (0.0-0.1); Basophils % (Auto) 0.6 % (0.0-1.8); Hemoglobin 17.4 gm/dl (11.8-15.2); Lymphocytes # (Auto) 0.9 K/mm3 (1.2-5.4); Lymphocytes % (Auto) 5.5 % (13.4-35.0); Mean Corpuscular HGB Conc 33 % (32-34); Mean Corpuscular Volume 92 fl (84-94); Monocytes % (Auto) 6.5 % (0.0-7.3); Platelet Count 284 K/mm3 (140-440); Red Blood Count 5.68 M/mm3 (3.65-5.03); Red Cell Distribution Width 13.5 % (13.2-15.2)
[2019-09-05 19:56] LABS: Albumin 5.1 g/dL (3.9-5); Calcium 10.2 mg/dL (8.4-10.2)
--- NOTE | 2019-09-05 21:30 | Cat Scan Report ---
CT of the abdomen and pelvis without contrast INDICATION: Epigastric pain today COMPARISON: 04/27/2019 FINDINGS: The liver, spleen, pancreas, adrenal glands and kidneys all appear normal. No definite gall bladder or biliary tree abnormality. No fluid or adenopathy in the upper abdomen. No gastric wall thi ckening or perigastric inflammation. CT of the pelvis shows a tubular structure in the right lower quadrant measuring 1.2 cm that may be t he appendix but this is not definite. There is no surrounding inflammation however. No pelvic fluid o r adenopathy. No diverticulosis or diverticulitis. No hernia or bowel obstruction. No significant ske letal lesion. IMPRESSION: May be a prominent appendix without inflammation. Clinical correlation will be necessary. Otherwise no abnormality. Automated exposure control was utilized to diminish radiation dose. Signer Name: Andrzej Gomez MD Signed: 09/05/2019 9:25 PM Workstation Name: [id number]
[2019-09-05] MEDS ORDERED: MORPHINE 4 MG/1 ML INJ IV ONE (21:55)
[2019-09-05] MEDS ORDERED: ONDANSETRON 4 MG/2 ML INJ IV ONE (21:55)
[2019-09-05 22:16] LABS: Bilirubin,Urine NEG (Negative); Blood,Urine SM (Negative); Color,Urine Yellow (Yellow); Hyaline Casts,Urine 3 /LPF; Mucus,Urine FEW /HPF; Protein,Urine <15 mg/dL mg/dL (Negative); Urobilinogen,Urine < 2.0 mg/dL (<2.0)
[2019-09-05] MEDS ORDERED: MAGNESIUM HYDROXIDE (MOM) ORAL LIQD UDC PO PRN (22:43)
[2019-09-05 22:45] LABS: Calcium 8.9 mg/dL (8.4-10.2)
[2019-09-05] MEDS ORDERED: METOCLOPRAMIDE 10 MG/2 ML INJ IV ONE (22:47)
--- NOTE | 2019-09-05 22:52 | History and Physical Report ---
History of Present Illness Date of examination: 09/05/19 Date of admission: 09/05/19 21:59 Chief complaint: Nausea and vomiting Abdominal pain History of present illness: 88-year-old -[place] male presenting to the emergency room today complaining of nausea and vomiting with accompanying abdominal pain. Abdominal pain is said to be more in the epigastric region. Nausea and vomiting has been ongoing for the past 2 to 3 days. He denies any fever or chills, no hematuria or dysuria, no headache or dizziness. Patient denies any recent travel and no sick contacts. He denies contact with anyone with COVID-19. Admits to using marijuana. Patient has had similar problems in the past and has been encouraged to follow- up with a technology education instructor. Patient has not followed up as recommended. Work-up in the emergency room was significant for mild hyperkalemia, CT of the abdomen was unremarkable. Past History Past Medical History: No medical history Past Surgical History: No surgical history Social history: smoking (Smokes marijuana) Family history: no significant family history Medications and Allergies Allergies Allergy/AdvReac Type Severity Reaction Status Date / Time No Known Allergies Allergy Verified 04/04/17 03:46 Home Medications Medication Instructions Recorded Confirmed Last Taken Type Ibuprofen [Motrin] 600 mg PO Q8H PRN #15 tablet 05/14/16 Unknown Rx traMADoL [Ultram] 50 mg PO Q6HR PRN #20 tablet 05/14/16 Unknown Rx Amoxicillin/K Clav Tab [Augmentin 1 tab PO Q12HR #20 tab 04/04/17 Unknown Rx 875 mg] traMADoL [Ultram] 50 mg PO Q6HR PRN #12 tablet 04/04/17 Unknown Rx Dicyclomine [Bentyl] 10 mg PO QID PRN #30 capsule 04/27/19 Unknown Rx Naproxen 500 mg PO BID PRN #30 tablet 04/27/19 Unknown Rx Ondansetron [Zofran Odt] 4 mg PO Q8HR PRN #12 tab.rapdis 04/27/19 Unknown Rx Famotidine [Pepcid] 20 mg PO BID 30 Days #60 tablet 06/01/19 Unknown Rx Promethazine [Phenergan] 25 mg PO Q6HR PRN #10 tab 06/01/19 Unknown Rx Review of Systems Constitutional: no fever, no chills Cardiovascular: no chest pain, no palpitations Respiratory: no cough, no shortness of breath Gastrointestinal: abdominal pain, nausea, vomiting, no diarrhea Genitourinary Male: no dysuria, no hematuria Musculoskeletal: no neck pain, no low back pain Integumentary: no rash, no pruritis Neurological: no headaches, no change in mentation Exam - Constitutional Vitals: Temp Pulse Resp BP Pulse Ox 98.2 F 84 20 134/84 96 09/05/19 18:12 09/05/19 18:12 09/05/19 18:12 09/05/19 18:12 09/05/19 18:12 General appearance: Present: no acute distress, mild distress, well-nourished - EENT Eyes: Present: PERRL, EOM intact, scleral icterus ENT: hearing intact, clear oral mucosa, dentition normal - Neck Neck: Present: supple, normal ROM - Respiratory Respiratory effort: normal Respiratory: bilateral: CTA - Cardiovascular Rhythm: regular Heart Sounds: Present: S1 & S2 - Extremities Extremities: no ischemia, pulses intact, pulses symmetrical, No edema, Full ROM Peripheral Pulses: within normal limits - Abdominal General gastrointestinal: Present: soft, non-tender, non-distended - Integumentary Integumentary: Present: clear, warm, dry - Musculoskeletal Musculoskeletal: strength equal bilaterally - Psychiatric Psychiatric: appropriate mood/affect, intact judgment & insight, cooperative - Neurologic Neurologic: CNII-XII intact, moves all extremities Results - Labs CBC & Chem 7: 09/06/19 02:46 09/05/19 22:06 Labs: Abnormal lab results 09/05/19 09/05/19 09/05/19 Range/Units 19:24 19:24 22:06 WBC 15.5 H (4.5-11.0) K/mm3 RBC 5.68 H (3.65-5.03) M/mm3 Hgb 17.4 H (11.8-15.2) gm/dl Hct 52.0 H (35.5-45.6) % Lymph % (Auto) 5.5 L (13.4-35.0) % Lymph # 0.9 L (1.2-5.4) K/mm3 [place] # 1.0 H (0.0-0.8) K/mm3 Seg Neutrophils % 87.4 H (40.0-70.0) % Seg Neutrophils # 13.5 H (1.8-7.7) K/mm3 Sodium 133 L 136 L (137-145) mmol/L Potassium 5.4 H (3.6-5.0) mmol/L Chloride 87.9 L 93.8 L (98-107) mmol/L Carbon Dioxide 21 L (22-30) mmol/L BUN 64 H 61 H (9-20) mg/dL Creatinine 3.7 H 3.3 H (0.8-1.5) mg/dL Glucose 140 H 111 H (75-100) mg/dL Total Protein 9.7 H (6.3-8.2) g/dL Albumin 5.1 H (3.9-5) g/dL Urine WBC (Auto) (0.0-6.0) /HPF 09/05/19 Range/Units Unknown WBC (4.5-11.0) K/mm3 RBC (3.65-5.03) M/mm3 Hgb (11.8-15.2) gm/dl Hct (35.5-45.6) % Lymph % (Auto) (13.4-35.0) % Lymph # (1.2-5.4) K/mm3 [place] # (0.0-0.8) K/mm3 Seg Neutrophils % (40.0-70.0) % Seg Neutrophils # (1.8-7.7) K/mm3 Sodium (137-145) mmol/L Potassium (3.6-5.0) mmol/L Chloride (98-107) mmol/L Carbon Dioxide (22-30) mmol/L BUN (9-20) mg/dL Creatinine (0.8-1.5) mg/dL Glucose (75-100) mg/dL Total Protein (6.3-8.2) g/dL Albumin (3.9-5) g/dL Urine WBC (Auto) 13.0 H (0.0-6.0) /HPF Assessment and Plan - Patient Problems (1) Acute kidney injury Current Visit: Yes Status: Acute Plan to address problem: Possibly secondary to dehydration. Will monitor BUN and creatinine. We also place a consult to nephrology for evaluation. (2) Dehydration Current Visit: Yes Status: Acute Plan to address problem: Secondary to nausea and vomiting. Patient will be placed on IV fluid normal saline. (3) Hyperkalemia Current Visit: Yes Status: Acute Plan to address problem: Possibly secondary to the dehydration. Placed on IV fluid.. Will monitor potassium level. (4) DVT prophylaxis Current Visit: Yes Status: Acute Plan to address problem: Patient placed on subcutaneous heparin. (5) Full code status Current Visit: Yes Status: Acute
[2019-09-05] MEDS ORDERED: METOCLOPRAMIDE 10 MG/2 ML INJ ONE (23:17)
[2019-09-05] MEDS ORDERED: SODIUM CHLORIDE 0.9% 1000 ML 1,000 ML ONE (23:17)
[2019-09-05] MEDS: SODIUM CHLORIDE 0.9% 1000 ML 1,000 ML IV SCH (23:30)
[2019-09-05] MEDS ORDERED: diphenhydrAMINE 50 MG/ML VIAL IV ONE (23:41)
[2019-09-05] MEDS ORDERED: diphenhydrAMINE 50 MG/ML VIAL ONE (23:45)
[2019-09-06 03:59] LABS: Basophils % (Auto) 0.2 % (0.0-1.8); Hematocrit 47.2 % (35.5-45.6); Hemoglobin 15.9 gm/dl (11.8-15.2); Lymphocytes # (Auto) 1.3 K/mm3 (1.2-5.4); Lymphocytes % (Auto) 8.1 % (13.4-35.0); Mean Corpuscular HGB Conc 34 % (32-34); Mean Corpuscular Volume 91 fl (84-94); Monocytes # (Auto) 1.8 K/mm3 (0.0-0.8); Monocytes % (Auto) 11.4 % (0.0-7.3); Platelet Count 267 K/mm3 (140-440); Red Blood Count 5.17 M/mm3 (3.65-5.03); Red Cell Distribution Width 13.4 % (13.2-15.2)
[2019-09-06 04:06] LABS: INR 1.22 (0.87-1.13)
[2019-09-06 04:14] LABS: Calcium 9.5 mg/dL (8.4-10.2)
[2019-09-06] MEDS: ACETAMINOPHEN 325 MG TAB PO PRN ×2 (04:41→10:26)
[2019-09-06] MEDS ORDERED: ACETAMINOPHEN 325 MG TAB ONE ×2 (04:41→10:25)
[2019-09-06] MEDS ORDERED: MORPHINE 2 MG/1 ML INJ IV ONE (06:12)
[2019-09-06] MEDS ORDERED: MORPHINE 2 MG/1 ML INJ ONE ×3 (06:21→21:18)
[2019-09-06] MEDS ORDERED: HEPARIN 5,000 UNIT/1 ML VIAL ONE (06:30)
[2019-09-06] MEDS: HEPARIN 5,000 UNIT/1 ML VIAL SUB-Q SCH ×2 (06:31→18:07)
--- NOTE | 2019-09-06 09:34 | Consultation ---
History of Present Illness - Reason for Consult Consult date: 09/06/19 acute renal failure - History of Present Illness This is a 28 year-old man with minimal known medical history who presents for abdominal pain, found to have NAVJOT. Notes severe epigastric abdominal pain with nausea, vomiting, and poor po intake for several days. Denies any new medical issues or medications. No history of HTN, DM, autoimmune disease. No known family history of renal disease. Has not heard of any renal issues before. Currently, patient denies issues including dyspnea, edema, headaches. Only not ing severe abdominal/flank pain. Past History Past Medical History: No medical history Past Surgical History: No surgical history Social history: smoking (Smokes marijuana) Family history: no significant family history Medications and Allergies Allergies Allergy/AdvReac Type Severity Reaction Status Date / Time No Known Allergies Allergy Verified 04/04/17 03:46 Home Medications Medication Instructions Recorded Confirmed Last Taken Type No Known Home Medications [No 09/06/19 09/06/19 Unknown History Reported Home Medications] Active Meds: Active Medications Acetaminophen (Tylenol) 650 mg PO Q4H PRN PRN Reason: Pain MILD(1-3)/Fever >100.5/PAUL Last Admin: 09/06/19 04:41 Dose: 650 mg Documented by: Heparin Sodium (Porcine) (Heparin) 5,000 unit SUB-Q Q8HR MARY Last Admin: 09/06/19 06:31 Dose: 5,000 unit Documented by: Sodium Chloride (Nacl 0.9% 1000 Ml) 1,000 mls @ 125 mls/hr IV DIRECT MARY Last Admin: 09/05/19 23:30 Dose: 125 mls/hr Documented by: Magnesium Hydroxide (Milk Of Magnesia) 30 ml PO Q4H PRN PRN Reason: Constipation Ondansetron HCl (Zofran) 4 mg IV Q8H PRN PRN Reason: Nausea And Vomiting Sodium Chloride (Sodium Chloride Flush Syringe 10 Ml) 10 ml IV BID MARY Sodium Chloride (Sodium Chloride Flush Syringe 10 Ml) 10 ml IV PRN PRN PRN Reason: LINE FLUSH Review of Systems All systems: negative (as per HPI) Exam - Vital Signs Vital signs: Vital Signs Temp Pulse Resp BP Pulse Ox 98.2 F 84 20 134/84 96 09/05/19 18:12 09/05/19 18:12 09/05/19 18:12 09/05/19 18:12 09/05/19 18:12 - General Appearance General appearance: well-developed, well-nourished, appears stated age, moderate distress EENT: ATNC, mucous membranes moist Neck: Present: neck supple Respiratory: Clear to Ascultation Heart: regular, S1S2 Gastrointestinal: Present: normoactive bowel sounds Integumentary: no rash, warm and dry Neurologic: no focal deficit, no asterixis, CN 3-12 intact Psychiatric: mood/affect appropriate Results - Lab Results 09/06/19 02:46 09/06/19 02:46 Most recent lab results Calcium 9.5 mg/dL (8.4-10.2) 09/06/19 02:46 Assessment and Plan This is a 28 year old man who presents with severe abdominal/flank pain, N/V, found to have NAVJOT. # Acute Kidney Injury: suspect NAVJOT likely pre-renal from poor po intake and N/V. Urinalysis reviewed- hyaline casts noted. Several WBCs noted as well, would check urine culture, but also may be related to interstitial injury although no clear nephrotoxin from history. Reviewed abdominal CT which was WNL, renal ultrasound pending. - IVF as tolerated - BP reasonable - strict Is/Os - pain control per primary - follow up renal ultrasound - urine culture to ensure no UTI - avoid nephrotoxins - no current indication for AD OPERATIONS SPECIALIST; will continue to follow # Abdominal Pain - urine culture - management per primary # Hyperkalemia: improved with IVF, likely related to NAVJOT Thank you for this interesting consult, we will continue to follow with you.
--- NOTE | 2019-09-06 09:51 | Progress Note ---
Assessment and Plan Assessment and plan: Sepsis. Patient meets criteria given tachycardia, leukocytosis and diagnosis of UTI. Follow-up blood and urine cultures. Continue IV antibiotics. Also, patient may have +/- gastroenteritis UTI. Continue IV antibiotics and follow-up urine culture. Acute gastroenteritis. Start Levaquin daily. GI consultation. CT scan of the abdomen unremarkable. Acute kidney injury. Etiology secondary to prerenal azotemia/dehydration/vasomotor nephropathy. Hyperkalemia. Resolved. History Interval history: No new issues overnight. Hospitalist Physical - Constitutional Vitals: Temp Pulse Resp BP Pulse Ox 98.2 F 52 L 18 141/91 99 09/06/19 04:48 09/06/19 04:48 09/06/19 04:48 09/06/19 04:48 09/06/19 04:48 General appearance: Present: no acute distress, mild distress, well-nourished - EENT Eyes: Present: PERRL, EOM intact ENT: hearing intact, clear oral mucosa, dentition normal - Neck Neck: Present: supple, normal ROM - Respiratory Respiratory effort: normal Respiratory: bilateral: CTA - Cardiovascular Rhythm: regular Heart Sounds: Present: S1 & S2. Absent: gallop, rub - Extremities Extremities: no ischemia, No edema, Full ROM - Abdominal General gastrointestinal: soft, non-tender, non-distended, normal bowel sounds - Integumentary Integumentary: Present: clear, warm, dry - Neurologic Neurologic: CNII-XII intact, moves all extremities Results - Labs CBC & Chem 7: 09/06/19 02:46 09/06/19 02:46 Labs: Laboratory Last Values WBC 15.9 K/mm3 (4.5-11.0) H 09/06/19 02:46 RBC 5.17 M/mm3 (3.65-5.03) H 09/06/19 02:46 Hgb 15.9 gm/dl (11.8-15.2) H 09/06/19 02:46 Hct 47.2 % (35.5-45.6) H 09/06/19 02:46 MCV 91 fl (84-94) 09/06/19 02:46 MCH 31 pg (28-32) 09/06/19 02:46 MCHC 34 % (32-34) 09/06/19 02:46 RDW 13.4 % (13.2-15.2) 09/06/19 02:46 Plt Count 267 K/mm3 (140-440) 09/06/19 02:46 Lymph % (Auto) 8.1 % (13.4-35.0) L 09/06/19 02:46 [place] % (Auto) 11.4 % (0.0-7.3) H 09/06/19 02:46 Eos % (Auto) 0.0 % (0.0-4.3) 09/06/19 02:46 Baso % (Auto) 0.2 % (0.0-1.8) 09/06/19 02:46 Lymph # 1.3 K/mm3 (1.2-5.4) 09/06/19 02:46 [place] # 1.8 K/mm3 (0.0-0.8) H 09/06/19 02:46 Eos # 0.0 K/mm3 (0.0-0.4) 09/06/19 02:46 Baso # 0.0 K/mm3 (0.0-0.1) 09/06/19 02:46 Seg Neutrophils % 80.3 % (40.0-70.0) H 09/06/19 02:46 Seg Neutrophils # 12.7 K/mm3 (1.8-7.7) H 09/06/19 02:46 PT 15.5 Sec. (12.2-14.9) H 09/06/19 02:46 INR 1.22 (0.87-1.13) H 09/06/19 02:46 Sodium 138 mmol/L (137-145) 09/06/19 02:46 Potassium 5.0 mmol/L (3.6-5.0) 09/06/19 02:46 Chloride 94.7 mmol/L (98-107) L 09/06/19 02:46 Carbon Dioxide 26 mmol/L (22-30) 09/06/19 02:46 Anion Gap 22 mmol/L 09/06/19 02:46 BUN 61 mg/dL (9-20) H 09/06/19 02:46 Creatinine 3.1 mg/dL (0.8-1.5) H 09/06/19 02:46 Estimated GFR 30 ml/min 09/06/19 02:46 BUN/Creatinine Ratio 20 % 09/06/19 02:46 Glucose 110 mg/dL (75-100) H 09/06/19 02:46 Calcium 9.5 mg/dL (8.4-10.2) 09/06/19 02:46 Total Bilirubin 0.90 mg/dL (0.1-1.2) 09/05/19 19:24 AST 34 units/L (5-40) 09/05/19 19:24 ALT 23 units/L (7-56) 09/05/19 19:24 Alkaline Phosphatase 125 units/L (35-129) 09/05/19 19:24 Total Protein 9.7 g/dL (6.3-8.2) H 09/05/19 19:24 Albumin 5.1 g/dL (3.9-5) H 09/05/19 19:24 Albumin/Globulin Ratio 1.1 % 09/05/19 19:24 Lipase 52 units/L (13-60) 09/05/19 19:24 Urine Color Yellow (Yellow) 09/05/19 Unknown Urine Turbidity Slightly-cloudy (Clear) 09/05/19 Unknown Urine pH 5.0 (5.0-7.0) 09/05/19 Unknown Ur Specific [place] 1.024 (1.003-1.030) 09/05/19 Unknown Urine Protein <15 mg/dl mg/dL (Negative) 09/05/19 Unknown Urine Glucose (UA) Neg mg/dL (Negative) 09/05/19 Unknown Urine Ketones Tr mg/dL (Negative) 09/05/19 Unknown Urine Blood Sm (Negative) 09/05/19 Unknown Urine Nitrite Neg (Negative) 09/05/19 Unknown Urine Bilirubin Neg (Negative) 09/05/19 Unknown Urine Urobilinogen < 2.0 mg/dL (<2.0) 09/05/19 Unknown Ur Leukocyte Esterase Neg (Negative) 09/05/19 Unknown Urine WBC (Auto) 13.0 /HPF (0.0-6.0) H 09/05/19 Unknown Urine RBC (Auto) 8.0 /HPF (0.0-6.0) 09/05/19 Unknown U Epithel Cells (Auto) 2.0 /HPF (0-13.0) 09/05/19 Unknown Hyaline Casts 3 /LPF 09/05/19 Unknown Urine Mucus Few /HPF 09/05/19 Unknown Vo/IV: IV Catheter Type [Right Distal INT / Saline [place] Antecubital] Active Medications - Current Medications Current Medications: Generic Name Dose Route Start Last Admin Trade Name Freq PRN Reason Stop Dose Admin Acetaminophen 650 mg 09/05/19 22:43 09/06/19 04:41 Tylenol PO 650 mg Q4H PRN Administration Pain MILD(1-3)/Fever >100.5/PAUL Heparin Sodium (Porcine) 5,000 unit 09/06/19 06:00 09/06/19 06:31 Heparin SUB-Q 5,000 unit Q8HR MARY Administration Sodium Chloride 1,000 mls @ 125 mls/hr 09/05/19 22:45 09/05/19 23:30 Nacl 0.9% 1000 Ml IV 125 mls/hr DIRECT MARY Administration Magnesium Hydroxide 30 ml 09/05/19 22:43 Milk Of Magnesia PO Q4H PRN Constipation Ondansetron HCl 4 mg 09/05/19 22:43 Zofran IV Q8H PRN Nausea And Vomiting Sodium Chloride 10 ml 09/06/19 10:00 Sodium Chloride Flush Syringe 10 Ml IV BID MARY Sodium Chloride 10 ml 09/05/19 22:43 Sodium Chloride Flush Syringe 10 Ml IV PRN PRN LINE FLUSH
[2019-09-06] MEDS ORDERED: FLU VACC QUAD 2019-20 (3 YR UP)/PF 60 MCG/0.5 ML SYRINGE IM ONE (14:39)
[2019-09-06] MEDS: MORPHINE 2 MG/1 ML INJ IV PRN ×2 (14:50→21:18)
--- NOTE | 2019-09-06 17:31 | Ultrasound Report ---
Renal ultrasound. HISTORY: Acute renal failure. FINDINGS: Right kidney measures 10.2 x 4.6 cm. Cortex measures 1.6 cm. Left kidney measures 11 x 4.9 cm. Cortex measures 1.1 cm. Negative for mass or obstruction. Cortical echogenicity is diffusely increased moderately. The bladde r contains a small amount urine. IMPRESSION: Moderate diffusely increased cortical echogenicity. Signer Name: Nam Dangelo MD Signed: 09/06/2019 5:26 PM Workstation Name: [email or web address]
[2019-09-07] MEDS: HEPARIN 5,000 UNIT/1 ML VIAL SUB-Q SCH ×4 (00:18→23:20)
[2019-09-07] MEDS: MORPHINE 2 MG/1 ML INJ IV PRN ×4 (00:22→23:19)
[2019-09-07] MEDS ORDERED: MORPHINE 2 MG/1 ML INJ ONE (00:22)
[2019-09-07] MEDS: SODIUM CHLORIDE 0.9% 1000 ML 1,000 ML IV SCH ×2 (02:04→23:21)
[2019-09-07] MEDS: ONDANSETRON 4 MG/2 ML INJ IV PRN ×2 (02:04→23:20)
--- NOTE | 2019-09-07 09:35 | Consultation ---
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 Patient has been in the emergency room in April as well as May for similar symptoms and was advised to see GI but has not done so. This attack started on the morning of 09/03 with 2 or 3 episodes of vomiting daily. He therefore presented to the emergency room and was found to be in acute renal failure and admitted for further evaluation. Patient is unaware of any clear precipitants, though he does smoke marijuana twice a day. He denies GI bleeding. He denies fevers chills or sweats. He states he has lost 20 pounds since April. He has no significant past medical history and is unaware of any prior kidney disease. He denies aspirin or non steroidal usage. There is no chest pain or shortness of breath. Bowel movements are generally once a day though he notes that they have been loose since mid July. There is no significant history of heartburn or dysphagia. He does complain of early satiety. Meds reviewed. Past History Past Medical History: No medical history Past Surgical History: No surgical history Social history: smoking (Smokes marijuana). denies: alcohol abuse Family history: no significant family history Medications and Allergies Allergies Allergy/AdvReac Type Severity Reaction Status Date / Time No Known Allergies Allergy Verified 04/04/17 03:46 Home Medications Medication Instructions Recorded Confirmed Last Taken Type No Known Home Medications [No 09/06/19 09/06/19 Unknown History Reported Home Medications] Active Meds: Active Medications Acetaminophen (Tylenol) 650 mg PO Q4H PRN PRN Reason: Pain MILD(1-3)/Fever >100.5/PAUL Last Admin: 09/06/19 10:26 Dose: 650 mg Documented by: Heparin Sodium (Porcine) (Heparin) 5,000 unit SUB-Q Q8HR MARY Last Admin: 09/07/19 05:51 Dose: 5,000 unit Documented by: Sodium Chloride (Nacl 0.9% 1000 Ml) 1,000 mls @ 125 mls/hr IV DIRECT MARY Last Admin: 09/07/19 02:04 Dose: 125 mls/hr Documented by: Levofloxacin/Dextrose (Levaquin 750mg/150ml) 750 mg in 150 mls @ 100 mls/hr IV Q48HR MARY; Protocol Magnesium Hydroxide (Milk Of Magnesia) 30 ml PO Q4H PRN PRN Reason: Constipation Morphine Sulfate (Morphine) 1 mg IV Q4H PRN PRN Reason: Pain, Moderate (4-6) Last Admin: 09/07/19 05:50 Dose: 1 mg Documented by: Ondansetron HCl (Zofran) 4 mg IV Q8H PRN PRN Reason: Nausea And Vomiting Last Admin: 09/07/19 02:04 Dose: 4 mg Documented by: Sodium Chloride (Sodium Chloride Flush Syringe 10 Ml) 10 ml IV BID MARY Last Admin: 09/07/19 00:19 Dose: 10 ml Documented by: Sodium Chloride (Sodium Chloride Flush Syringe 10 Ml) 10 ml IV PRN PRN PRN Reason: LINE FLUSH Review of Systems All systems: negative (as noted in HPI) Exam - Constitutional Vitals: Temp Pulse Resp BP Pulse Ox 98.5 F 46 L 20 153/77 100 09/07/19 08:29 09/07/19 08:29 09/07/19 08:29 09/07/19 08:29 09/07/19 08:29 General appearance: Present: mild distress - EENT Eyes: Present: PERRL, EOM intact ENT: hearing intact - Respiratory Respiratory effort: normal Respiratory: bilateral: CTA - Cardiovascular Rhythm: regular Heart Sounds: Present: S1 & S2 - Extremities Extremities: No edema - Abdominal General gastrointestinal: Present: soft, tender (Minimal upper abdominal), normal bowel sounds Results - Labs CBC & Chem 7: 09/06/19 02:46 09/06/19 02:46 - Imaging and Cardiology CT scan - abdomen: report reviewed (Normal) Assessment and Plan 1. Upper abdominal pain, N/V -etiology unclear. Symptoms may well be related to marijuana usage. Peptic ulcer disease is also a consideration. Labs are normal except for elevated creatinine. It is unclear if this pain is related to the acute kidney injury since his pain was present in April as well as May and the kidney function was normal at that time. If they are connected, a vasculitis type process could be considered. Also on the differential is biliary dyskinesia. -Empiric PPI -Proceed with upper endoscopy -Await nephrology evaluation to see if there might be a connection -If EGD negative, gallbladder ultrasound. -Discussed marijuana induced hyperemesis with patient.
--- NOTE | 2019-09-07 10:51 | Progress Note ---
Assessment and Plan Assessment and plan: --Acute gastroenteritis/abdominal pain. CT scan of the abdomen unremarkable. GI consultation , scheduled for EGD today --Sepsis. Patient meets criteria given tachycardia, leukocytosis and diagnosis of UTI. Follow-up blood and urine cultures. Continue IV antibiotics. --UTI. Empiric IV antibiotics and follow-up urine culture. --Acute kidney injury. vasomotor nephropathy. Gentle hydration, monitor renal function, avoid nephrotoxins --Hyperkalemia; present on admission, resolved. --Hyponatremia; sodium levels gradually improving Closely monitor electrolytes --DVT prophylaxis; Lovenox Monitor closely and adjust management as needed Plan of care reviewed with the patient and his nurse History Interval history: Patient seen and examined at the bedside this morning Patient's chart and medications reviewed Patient is scheduled for EGD today, N.p.o. status Patient continues to have epigastric and retrosternal pain Vital signs noted Hospitalist Physical - Constitutional Vitals: Temp Pulse Resp BP Pulse Ox 98.5 F 46 L 20 153/77 100 09/07/19 08:29 09/07/19 08:29 09/07/19 08:29 09/07/19 08:29 09/07/19 08:29 General appearance: Present: mild distress, well-nourished - EENT Eyes: Present: PERRL, EOM intact - Neck Neck: Present: supple, normal ROM - Respiratory Respiratory effort: normal Respiratory: negative: rales, rhonchi, wheezing - Cardiovascular Rhythm: regular Heart Sounds: Present: S1 & S2 - Extremities Extremities: no ischemia, No edema - Abdominal General gastrointestinal: soft, tender (Epigastric area no guarding no rigid ity), non-distended, normal bowel sounds - Integumentary Integumentary: Present: clear, warm - Psychiatric Psychiatric: appropriate mood/affect, cooperative - Neurologic Neurologic: moves all extremities Results - Labs CBC & Chem 7: 09/06/19 02:46 09/07/19 12:56 Labs: Laboratory Last Values WBC 15.9 K/mm3 (4.5-11.0) H 09/06/19 02:46 RBC 5.17 M/mm3 (3.65-5.03) H 09/06/19 02:46 Hgb 15.9 gm/dl (11.8-15.2) H 09/06/19 02:46 Hct 47.2 % (35.5-45.6) H 09/06/19 02:46 MCV 91 fl (84-94) 09/06/19 02:46 MCH 31 pg (28-32) 09/06/19 02:46 MCHC 34 % (32-34) 09/06/19 02:46 RDW 13.4 % (13.2-15.2) 09/06/19 02:46 Plt Count 267 K/mm3 (140-440) 09/06/19 02:46 Lymph % (Auto) 8.1 % (13.4-35.0) L 09/06/19 02:46 [place] % (Auto) 11.4 % (0.0-7.3) H 09/06/19 02:46 Eos % (Auto) 0.0 % (0.0-4.3) 09/06/19 02:46 Baso % (Auto) 0.2 % (0.0-1.8) 09/06/19 02:46 Lymph # 1.3 K/mm3 (1.2-5.4) 09/06/19 02:46 [place] # 1.8 K/mm3 (0.0-0.8) H 09/06/19 02:46 Eos # 0.0 K/mm3 (0.0-0.4) 09/06/19 02:46 Baso # 0.0 K/mm3 (0.0-0.1) 09/06/19 02:46 Seg Neutrophils % 80.3 % (40.0-70.0) H 09/06/19 02:46 Seg Neutrophils # 12.7 K/mm3 (1.8-7.7) H 09/06/19 02:46 PT 15.5 Sec. (12.2-14.9) H 09/06/19 02:46 INR 1.22 (0.87-1.13) H 09/06/19 02:46 Sodium 138 mmol/L (137-145) 09/06/19 02:46 Potassium 5.0 mmol/L (3.6-5.0) 09/06/19 02:46 Chloride 94.7 mmol/L (98-107) L 09/06/19 02:46 Carbon Dioxide 26 mmol/L (22-30) 09/06/19 02:46 Anion Gap 22 mmol/L 09/06/19 02:46 BUN 61 mg/dL (9-20) H 09/06/19 02:46 Creatinine 3.1 mg/dL (0.8-1.5) H 09/06/19 02:46 Estimated GFR 30 ml/min 09/06/19 02:46 BUN/Creatinine Ratio 20 % 09/06/19 02:46 Glucose 110 mg/dL (75-100) H 09/06/19 02:46 Calcium 9.5 mg/dL (8.4-10.2) 09/06/19 02:46 Total Bilirubin 0.90 mg/dL (0.1-1.2) 09/05/19 19:24 AST 34 units/L (5-40) 09/05/19 19:24 ALT 23 units/L (7-56) 09/05/19 19:24 Alkaline Phosphatase 125 units/L (35-129) 09/05/19 19:24 Total Protein 9.7 g/dL (6.3-8.2) H 09/05/19 19:24 Albumin 5.1 g/dL (3.9-5) H 09/05/19 19:24 Albumin/Globulin Ratio 1.1 % 09/05/19 19:24 Lipase 52 units/L (13-60) 09/05/19 19:24 Urine Color Yellow (Yellow) 09/05/19 Unknown Urine Turbidity Slightly-cloudy (Clear) 09/05/19 Unknown Urine pH 5.0 (5.0-7.0) 09/05/19 Unknown Ur Specific [place] 1.024 (1.003-1.030) 09/05/19 Unknown Urine Protein <15 mg/dl mg/dL (Negative) 09/05/19 Unknown Urine Glucose (UA) Neg mg/dL (Negative) 09/05/19 Unknown Urine Ketones Tr mg/dL (Negative) 09/05/19 Unknown Urine Blood Sm (Negative) 09/05/19 Unknown Urine Nitrite Neg (Negative) 09/05/19 Unknown Urine Bilirubin Neg (Negative) 09/05/19 Unknown Urine Urobilinogen < 2.0 mg/dL (<2.0) 09/05/19 Unknown Ur Leukocyte Esterase Neg (Negative) 09/05/19 Unknown Urine WBC (Auto) 13.0 /HPF (0.0-6.0) H 09/05/19 Unknown Urine RBC (Auto) 8.0 /HPF (0.0-6.0) 09/05/19 Unknown U Epithel Cells (Auto) 2.0 /HPF (0-13.0) 09/05/19 Unknown Hyaline Casts 3 /LPF 09/05/19 Unknown Urine Mucus Few /HPF 09/05/19 Unknown Microbiology: Microbiology 09/05/19 Unknown Urine,Clean Catch Urine Culture - Preliminary NO GROWTH AFTER 24 HOURS Vo/IV: Voiding Method Urinal IV Catheter Type [Right Distal INT / Saline Lock Port Antecubital] Active Medications - Current Medications Current Medications: Generic Name Dose Route Start Last Admin Trade Name Freq PRN Reason Stop Dose Admin Acetaminophen 650 mg 09/05/19 22:43 09/06/19 10:26 Tylenol PO 650 mg Q4H PRN Administration Pain MILD(1-3)/Fever >100.5/PAUL Heparin Sodium (Porcine) 5,000 unit 09/06/19 06:00 09/07/19 05:51 Heparin SUB-Q 5,000 unit Q8HR MARY Administration Sodium Chloride 1,000 mls @ 125 mls/hr 09/05/19 22:45 09/07/19 02:04 Nacl 0.9% 1000 Ml IV 125 mls/hr DIRECT MARY Administration Levofloxacin/Dextrose 750 mg in 150 mls @ 100 mls/hr 09/07/19 10:00 09/07/19 10:20 Levaquin 750mg/150ml IV 100 mls/hr Q48HR MARY Administration Protocol Magnesium Hydroxide 30 ml 09/05/19 22:43 Milk Of Magnesia PO Q4H PRN Constipation Morphine Sulfate 1 mg 09/06/19 14:37 09/07/19 05:50 Morphine IV 1 mg Q4H PRN Administration Pain, Moderate (4-6) Ondansetron HCl 4 mg 09/05/19 22:43 09/07/19 02:04 Zofran IV 4 mg Q8H PRN Administration Nausea And Vomiting Sodium Chloride 10 ml 09/06/19 10:00 09/07/19 00:19 Sodium Chloride Flush Syringe 10 Ml IV 10 ml BID MARY Administration Sodium Chloride 10 ml 09/05/19 22:43 Sodium Chloride Flush Syringe 10 Ml IV PRN PRN LINE FLUSH
[2019-09-07 13:29] LABS: BUN/Creatinine Ratio 23; Blood Urea Nitrogen 36 mg/dL (9-20); Calcium 9.1 mg/dL (8.4-10.2); Hemolysis Index 8
[2019-09-07] MEDS ORDERED: fentaNYL 100 MCG/2 ML INJ ONE (14:13)
--- NOTE | 2019-09-07 14:16 | Anesthesia Consultation ---
Anesthesia Consult and Med Hx - Airway Anesthetic Teeth Evaluation: Good ROM Head & Neck: Adequate Mental/Hyoid Distance: Adequate Mallampati Class: Class II - Pre-Operative Health Status ASA Pre-Surgery Classification: ASA2 Proposed Anesthetic Plan: MAC - Pulmonary Hx Smoking: Yes (marijuana) Hx Asthma: No Hx Respiratory Symptoms: No SOB: No COPD: No Home Oxygen Therapy: No Hx Pneumonia: No Hx Sleep Apnea: No - Cardiovascular System Hx Hypertension: No Hx Coronary Artery Disease: No Hx Heart Attack/AMI: No Hx Angina: No Hx Percutaneous Transluminal Coronary Angioplasty (PTCA): No Hx Cardia Arrhythmia: No Hx Pacemaker: No Hx Internal Defibrillator: No Hx Valvular Heart Disease: No Hx Heart Murmur: No Hx Peripheral Vascular Disease: No - Central Nervous System Hx Neuromuscular Disorder: No Hx Seizures: No CVA: No Hx Back Pain: No Hx Psychiatric Problems: No - Gastrointestinal Hx Ulcer: No Hx Gastroesophageal Reflux Disease: No - Endocrine Hx Renal Disease: Yes (NAVJOT?) Hx End Stage Renal Disease: No Hx Cirrhosis: No Hx Liver Disease: No Hx Insulin Dependent Diabetes: No Hx Non-Insulin Dependent Diabetes: No Hx Thyroid Disease: No Hx Hypothyroidism: No Hx Hyperthyroidism: No - Hematic Hx Anemia: No Hx Sickle Cell Disease: No - Other Systems Hx Alcohol Use: Yes Hx Substance Use: Yes Hx Cancer: No Hx Obesity: No
--- NOTE | 2019-09-07 14:17 | Anesthesia Day of Surgery ---
Anesthesia Day of Surgery - Day of Surgery Patient Examined: Yes Patient H&P Reviewed: Yes Patient is NPO: Yes
[2019-09-07] MEDS ORDERED: LIDOCAINE MPF (2%) 20 MG/1 ML VIAL 5 ML ONE (15:00)
[2019-09-07] MEDS ORDERED: HYDROmorphone 1 MG/1 ML INJ ONE (15:13)
[2019-09-07] MEDS ORDERED: propofoL 200 MG/20 ML VIAL IV ONE (15:14)
--- NOTE | 2019-09-07 15:34 | Post Operative Note ---
Pre-op diagnosis: Abdominal pain Post-op diagnosis: other (Erosive esophagitis and erosive duodenitis) Findings: 1. Erosive esophagitis involving distal 10 cm of esophagus, with whitish exudate. Biopsied. 2. Normal stomach. 3. Scattered punched out erosions in descending duodenum, with whitish exudate. Biopsied. Procedure: EGD with biopsy Anesthesia: [facility] [place] Surgeon: TA ALMANZA Estimated blood loss: none Pathology: list (1. Duodenum 2. Esophagus) Specimen disposition: to lab Condition: stable Disposition: floor (1. Adv diet as tolerated. 2. F/u pathology 3. Would check for HIV or other immunosuppressive/autoimmune disease process)
--- NOTE | 2019-09-07 16:19 | Progress Note ---
Assessment and Plan This is a 28 year old man who presents with severe abdominal/flank pain, N/V, found to have NAVJOT. # Acute Kidney Injury: suspect NAVJOT likely pre-renal from poor po intake and N/V. Urinalysis reviewed- hyaline casts noted. Reviewed abdominal CT which was WNL, renal ultrasound also WNL. Renal function improving with supportive measures. 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 Subjective Date of service: 09/07/19 Interval history: Patient resting, had EGD earlier. Objective - Exam Narrative Exam: General appearance: well-developed, well-nourished, appears stated age, moderate distress EENT: ATNC, mucous membranes moist Neck: Present: neck supple Respiratory: Clear to Ascultation Heart: regular, S1S2 Gastrointestinal: Present: normoactive bowel sounds Integumentary: no rash, warm and dry Neurologic: no focal deficit, no asterixis, CN 3-12 intact Psychiatric: mood/affect appropriate - Vital Signs Vital signs: Vital Signs - 12hr 09/07/19 09/07/19 09/07/19 05:48 05:50 08:29 Temperature 98.5 F Pulse Rate 50 L 46 L Respiratory 20 20 Rate Blood Pressure 153/77 O2 Sat by Pulse 100 Oximetry 09/07/19 09/07/19 15:34 15:49 Temperature 98.7 F Pulse Rate 70 68 Respiratory 14 17 Rate Blood Pressure 146/75 O2 Sat by Pulse 98 99 Oximetry - Lab 09/06/19 02:46 09/07/19 12:56 Most recent lab results Calcium 9.1 mg/dL (8.4-10.2) 09/07/19 12:56 Medications & Allergies - Medications Allergies/Adverse Reactions: Allergies No Known Allergies Allergy (Verified 04/04/17 03:46) Home Medications: Home Medications Medication Instructions Recorded Confirmed Last Taken Type No Known Home Medications [No 09/06/19 09/06/19 Unknown History Reported Home Medications] Active Medications: Generic Name Dose Route Start Last Admin Trade Name Hayq PRN Reason Stop Dose Admin Acetaminophen 650 mg 09/05/19 22:43 09/06/19 10:26 Tylenol PO 650 mg Q4H PRN Administration Pain MILD(1-3)/Fever >100.5/PAUL Heparin Sodium (Porcine) 5,000 unit 09/06/19 06:00 09/07/19 05:51 Heparin SUB-Q 5,000 unit Q8HR MARY Administration Sodium Chloride 1,000 mls @ 125 mls/hr 09/05/19 22:45 09/07/19 02:04 Nacl 0.9% 1000 Ml IV 125 mls/hr DIRECT MARY Administration Levofloxacin/Dextrose 750 mg in 150 mls @ 100 mls/hr 09/07/19 10:00 09/07/19 10:20 Levaquin 750mg/150ml IV 100 mls/hr Q48HR MARY Administration Protocol Magnesium Hydroxide 30 ml 09/05/19 22:43 Milk Of Magnesia PO Q4H PRN Constipation Morphine Sulfate 1 mg 09/06/19 14:37 09/07/19 05:50 Morphine IV 1 mg Q4H PRN Administration Pain, Moderate (4-6) Ondansetron HCl 4 mg 09/05/19 22:43 09/07/19 02:04 Zofran IV 4 mg Q8H PRN Administration Nausea And Vomiting Sodium Chloride 10 ml 09/06/19 10:00 09/07/19 00:19 Sodium Chloride Flush Syringe 10 Ml IV 10 ml BID MARY Administration Sodium Chloride 10 ml 09/05/19 22:43 Sodium Chloride Flush Syringe 10 Ml IV PRN PRN LINE FLUSH
--- NOTE | 2019-09-07 18:51 | Operative Report ---
UPPER ENDOSCOPY REPORT PROCEDURE: Upper endoscopy with biopsy. PREOPERATIVE DIAGNOSIS: Abdominal pain. POSTOPERATIVE DIAGNOSES: Erosive esophagitis and duodenitis. SEDATION: MAC by Anesthesia. HISTORY: The patient is a 28-year-old man who has been coming into the hospital, off and on with abdominal pain for the last 3-4 months. He was admitted this time and found to be in acute renal failure. His laboratory and CT were normal other than the renal failure with a creatinine of 3.1 and an elevated white count of 15.9. DESCRIPTION OF PROCEDURE: Indications, risks, and benefits were explained and consent was obtained. The patient was placed in left lateral decubitus position and sedated. Video upper endoscope was passed through the mouth and oropharynx into the descending duodenum. Scope was then gradually withdrawn with close inspection of mucosa. FINDINGS: 1. The patient had diffusely erosive esophagitis involving the distal 10 cm with white mucoid exudate. Biopsies were obtained. 2. Otherwise, normal esophagus. 3. Z-line or GE junction located at 43 cm from the incisors. 4. Normal appearing gastric antrum, fundus, body, and cardia. 5. Small bowel had scattered punched out erosions with white base. There were a few of them. These measured approximately 4-5 mm in diameter. Biopsies were obtained. 6. Remainder of duodenum is normal appearing. The patient tolerated the procedures well without immediate complications. IMPRESSION: 1. Distal erosive esophagitis -- suspicious for viral or infectious or inflammatory process. 2. Mild erosive duodenitis -- suspicious for infectious or autoimmune process. Biopsies obtained. PLAN: 1. Follow up biopsies. 2. Would check for immunosuppressed states including HIV. 3. Proton pump inhibitors and advance diet. JOB# [id number] HRC/NTS
[2019-09-08] MEDS: ONDANSETRON 4 MG/2 ML INJ IV PRN (05:00)
[2019-09-08] MEDS: MORPHINE 2 MG/1 ML INJ IV PRN ×4 (05:00→21:48)
[2019-09-08] MEDS: HEPARIN 5,000 UNIT/1 ML VIAL SUB-Q SCH ×4 (05:01→21:48)
[2019-09-08 09:06] LABS: Basophils % (Auto) 0.2 % (0.0-1.8); Eosinophils % (Auto) 0.2 % (0.0-4.3); Hemoglobin 13.8 gm/dl (11.8-15.2); Lymphocytes # (Auto) 0.8 K/mm3 (1.2-5.4); Lymphocytes % (Auto) 11.7 % (13.4-35.0); Mean Corpuscular HGB Conc 34 % (32-34); Mean Corpuscular Volume 91 fl (84-94); Platelet Count 167 K/mm3 (140-440); Red Blood Count 4.53 M/mm3 (3.65-5.03); Red Cell Distribution Width 12.7 % (13.2-15.2)
[2019-09-08 09:30] LABS: BUN/Creatinine Ratio 21; Blood Urea Nitrogen 29 mg/dL (9-20); Calcium 8.7 mg/dL (8.4-10.2); Hemolysis Index 5
[2019-09-08] MEDS: levoFLOXacin 750 MG TAB PO SCH (09:50)
[2019-09-08] MEDS: PANTOPRAZOLE 40 MG TAB PO SCH ×2 (09:50→21:48)
--- NOTE | 2019-09-08 11:27 | Progress Note ---
Assessment and Plan This is a 28 year old man who presents with severe abdominal/flank pain, N/V, found to have NAVJOT. # Acute Kidney Injury: suspect NAVJOT likely pre-renal from poor po intake and N/V. Urinalysis reviewed- hyaline casts noted. Reviewed abdominal CT which was WNL, renal ultrasound also WNL. Renal function improving with supportive measures, creatinine down to 1.4. 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 Subjective Date of service: 09/08/19 Interval history: No acute events noted, patient notes feeling better. Objective - Exam Narrative Exam: General appearance: well-developed, well-nourished, appears stated age, moderate distress EENT: ATNC, mucous membranes moist Neck: Present: neck supple Respiratory: Clear to Ascultation Heart: regular, S1S2 Gastrointestinal: Present: normoactive bowel sounds Integumentary: no rash, warm and dry Neurologic: no focal deficit, no asterixis, CN 3-12 intact Psychiatric: mood/affect appropriate - Vital Signs Vital signs: Vital Signs - 12hr 09/08/19 09/08/19 09/08/19 03:35 05:00 08:19 Temperature 98.1 F 98.5 F Pulse Rate 53 L 55 L 45 L Respiratory 16 20 18 Rate Blood Pressure 137/77 148/71 O2 Sat by Pulse 98 100 Oximetry - Lab 09/08/19 08:23 09/08/19 08:23 Most recent lab results Calcium 8.7 mg/dL (8.4-10.2) 09/08/19 08:23 Magnesium 2.30 mg/dL (1.7-2.3) 09/08/19 08:23 Medications & Allergies - Medications Allergies/Adverse Reactions: Allergies No Known Allergies Allergy (Verified 04/04/17 03:46) Home Medications: Home Medications Medication Instructions Recorded Confirmed Last Taken Type No Known Home Medications [No 09/06/19 09/06/19 Unknown History Reported Home Medications] Active Medications: Generic Name Dose Route Start Last Admin Trade Name Freq PRN Reason Stop Dose Admin Acetaminophen 650 mg 09/05/19 22:43 09/06/19 10:26 Tylenol PO 650 mg Q4H PRN Administration Pain MILD(1-3)/Fever >100.5/PAUL Heparin Sodium (Porcine) 5,000 unit 09/06/19 06:00 09/08/19 05:06 Heparin SUB-Q Not Given Q8HR MARY Sodium Chloride 1,000 mls @ 125 mls/hr 09/05/19 22:45 09/07/19 23:21 Nacl 0.9% 1000 Ml IV 125 mls/hr DIRECT MARY Administration Levofloxacin 750 mg 09/08/19 10:00 09/08/19 09:50 Levaquin PO 09/13/19 09:59 750 mg Q24HR MARY Administration Magnesium Hydroxide 30 ml 09/05/19 22:43 Milk Of Magnesia PO Q4H PRN Constipation Morphine Sulfate 1 mg 09/06/19 14:37 09/08/19 09:49 Morphine IV 1 mg Q4H PRN Administration Pain, Moderate (4-6) Ondansetron HCl 4 mg 09/05/19 22:43 09/08/19 05:00 Zofran IV 4 mg Q8H PRN Administration Nausea And Vomiting Pantoprazole Sodium 40 mg 09/08/19 10:00 09/08/19 09:50 Protonix PO 40 mg BID MARY Administration Sodium Chloride 10 ml 09/06/19 10:00 09/08/19 09:50 Sodium Chloride Flush Syringe 10 Ml IV 10 ml BID MARY Administration Sodium Chloride 10 ml 09/05/19 22:43 Sodium Chloride Flush Syringe 10 Ml IV PRN PRN LINE FLUSH
--- NOTE | 2019-09-08 13:54 | Progress Note ---
Assessment and Plan 1. Esophagitis/duodenitis - etiology unclear. Biopsies pending. - check HIV - adv diet - continue PPI - if N/V get worse, check GB ultrasound Subjective Date of service: 09/08/19 Interval history: Pt feels better. Still has discomfort and mild nausea. Objective - Constitutional Vitals: Vital Signs - 12hr 09/08/19 09/08/19 09/08/19 03:35 05:00 08:19 Temperature 98.1 F 98.5 F Pulse Rate 53 L 55 L 45 L Respiratory 16 20 18 Rate Blood Pressure 137/77 148/71 O2 Sat by Pulse 98 100 Oximetry 09/08/19 11:43 Temperature 99.0 F Pulse Rate 46 L Respiratory 18 Rate Blood Pressure 135/70 O2 Sat by Pulse 100 Oximetry General appearance: Present: no acute distress - EENT Eyes: PERRL, EOM intact ENT: hearing intact - Respiratory Respiratory effort: normal - Gastrointestinal General gastrointestinal: Present: soft, non-tender - Labs CBC & Chem 7: 09/08/19 08:23 09/08/19 08:23 Labs: Abnormal lab results 09/08/19 09/08/19 Range/Units 08:23 08:23 RDW 12.7 L (13.2-15.2) % Lymph % (Auto) 11.7 L (13.4-35.0) % [place] % (Auto) 14.0 H (0.0-7.3) % Lymph # 0.8 L (1.2-5.4) K/mm3 [place] # 1.0 H (0.0-0.8) K/mm3 Seg Neutrophils % 73.9 H (40.0-70.0) % BUN 29 H (9-20) mg/dL Medications & Allergies - Medications Allergies/Adverse Reactions: Allergies No Known Allergies Allergy (Verified 04/04/17 03:46) Home Medications: Home Medications Medication Instructions Recorded Confirmed Last Taken Type No Known Home Medications [No 09/06/19 09/06/19 Unknown History Reported Home Medications] Active Medications: Generic Name Dose Route Start Last Admin Trade Name Freq PRN Reason Stop Dose Admin Acetaminophen 650 mg 09/05/19 22:43 09/06/19 10:26 Tylenol PO 650 mg Q4H PRN Administration Pain MILD(1-3)/Fever >100.5/PAUL Heparin Sodium (Porcine) 5,000 unit 09/06/19 06:00 09/08/19 05:06 Heparin SUB-Q Not Given Q8HR MARY Sodium Chloride 1,000 mls @ 125 mls/hr 09/05/19 22:45 09/07/19 23:21 Nacl 0.9% 1000 Ml IV 125 mls/hr DIRECT MARY Administration Levofloxacin 750 mg 09/08/19 10:00 09/08/19 09:50 Levaquin PO 09/13/19 09:59 750 mg Q24HR MARY Administration Magnesium Hydroxide 30 ml 09/05/19 22:43 Milk Of Magnesia PO Q4H PRN Constipation Morphine Sulfate 1 mg 09/06/19 14:37 09/08/19 09:49 Morphine IV 1 mg Q4H PRN Administration Pain, Moderate (4-6) Ondansetron HCl 4 mg 09/05/19 22:43 09/08/19 05:00 Zofran IV 4 mg Q8H PRN Administration Nausea And Vomiting Pantoprazole Sodium 40 mg 09/08/19 10:00 09/08/19 09:50 Protonix PO 40 mg BID MARY Administration Sodium Chloride 10 ml 09/06/19 10:00 09/08/19 09:50 Sodium Chloride Flush Syringe 10 Ml IV 10 ml BID MARY Administration Sodium Chloride 10 ml 09/05/19 22:43 Sodium Chloride Flush Syringe 10 Ml IV PRN PRN LINE FLUSH
--- NOTE | 2019-09-08 18:59 | Progress Note ---
Assessment and Plan Assessment and plan: --Acute gastroenteritis/abdominal pain. CT scan of the abdomen unremarkable. GI evaluated,s/p EGD [09/07/2019] EGD; Erosive esophagitis distal 10 cm Whitish exudate, biopsied Normal stomach Scattered punched-out erosions and descending duodenum White exudate, biopsied Recommend HIV test[requested] Outpatient autoimmune disease work-up as needed --Sepsis:Patient meets criteria given tachycardia, leukocytosis and diagnosis of UTI. Urine cultures negative to date, complete antibiotics for 5 days --UTI. Antibiotics for 5 days, cultures negative to date --Acute kidney injury. vasomotor nephropathy/resolved Gentle hydration, monitor renal function, avoid nephrotoxins --Hyperkalemia; present on admission, resolved. --Hyponatremia; sodium levels gradually improving resolved --DVT prophylaxis; Lovenox Monitor closely and adjust management as needed Plan of care reviewed with the patient and his nurse GI recommendations noted and appreciated History Interval history: Patient seen and examined at the bedside this morning Patient's chart, EGD reports, tests reviewed Patient feels slightly better continues to have epigastric and retrosternal discomfort and pain Vital signs reviewed Hospitalist Physical - Constitutional Vitals: Temp Pulse Resp BP Pulse Ox 99.2 F 46 L 18 135/70 100 09/08/19 16:15 09/08/19 11:43 09/08/19 16:15 09/08/19 11:43 09/08/19 11:43 General appearance: Present: mild distress, well-nourished - EENT Eyes: Present: PERRL, EOM intact - Neck Neck: Present: supple, normal ROM - Respiratory Respiratory effort: normal Respiratory: bilateral: diminished, negative: rales, rhonchi, wheezing - Cardiovascular Rhythm: regular Heart Sounds: Present: S1 & S2 - Extremities Extremities: no ischemia, No edema - Abdominal General gastrointestinal: soft, non-tender, non-distended, normal bowel sounds - Integumentary Integumentary: Present: clear, warm - Psychiatric Psychiatric: appropriate mood/affect, cooperative - Neurologic Neurologic: moves all extremities Results - Labs CBC & Chem 7: 09/08/19 08:23 09/08/19 08:23 Labs: Laboratory Last Values WBC 6.9 K/mm3 (4.5-11.0) 09/08/19 08:23 RBC 4.53 M/mm3 (3.65-5.03) 09/08/19 08:23 Hgb 13.8 gm/dl (11.8-15.2) 09/08/19 08: Hct 41.0 % (35.5-45.6) D 09/08/19 08:23 MCV 91 fl (84-94) 09/08/19 08:23 MCH 30 pg (28-32) 09/08/19 08: MCHC 34 % (32-34) 09/08/19 08:23 RDW 12.7 % (13.2-15.2) L 09/08/19 08:23 Plt Count 167 K/mm3 (140-440) 09/08/19 08:23 Lymph % (Auto) 11.7 % (13.4-35.0) L 09/08/19 08:23 [place] % (Auto) 14.0 % (0.0-7.3) H 09/08/19 08:23 Eos % (Auto) 0.2 % (0.0-4.3) 09/08/19 08:23 Baso % (Auto) 0.2 % (0.0-1.8) 09/08/19 08:23 Lymph # 0.8 K/mm3 (1.2-5.4) L 09/08/19 08:23 [place] # 1.0 K/mm3 (0.0-0.8) H 09/08/19 08:23 Eos # 0.0 K/mm3 (0.0-0.4) 09/08/19 08: Baso # 0.0 K/mm3 (0.0-0.1) 09/08/19 08:23 Seg Neutrophils % 73.9 % (40.0-70.0) H 09/08/19 08:23 Seg Neutrophils # 5.1 K/mm3 (1.8-7.7) 09/08/19 08:23 PT 15.5 Sec. (12.2-14.9) H 09/06/19 02:46 INR 1.22 (0.87-1.13) H 09/06/19 02:46 Sodium 137 mmol/L (137-145) 09/08/19 08:23 Potassium 3.9 mmol/L (3.6-5.0) 09/08/19 08:23 Chloride 100.4 mmol/L (98-107) 09/08/19 08:23 Carbon Dioxide 24 mmol/L (22-30) 09/08/19 08:23 Anion Gap 17 mmol/L 09/08/19 08:23 BUN 29 mg/dL (9-20) H 09/08/19 08:23 Creatinine 1.4 mg/dL (0.8-1.5) 09/08/19 08:23 Estimated GFR > 60 ml/min 09/08/19 08:23 BUN/Creatinine Ratio 21 % 09/08/19 08:23 Glucose 98 mg/dL (75-100) 09/08/19 08:23 Calcium 8.7 mg/dL (8.4-10.2) 09/08/19 08:23 Magnesium 2.30 mg/dL (1.7-2.3) 09/08/19 08:23 Total Bilirubin 0.90 mg/dL (0.1-1.2) 09/05/19 19:24 AST 34 units/L (5-40) 09/05/19 19:24 ALT 23 units/L (7-56) 09/05/19 19:24 Alkaline Phosphatase 125 units/L (35-129) 09/05/19 19:24 Total Protein 9.7 g/dL (6.3-8.2) H 09/05/19 19:24 Albumin 5.1 g/dL (3.9-5) H 09/05/19 19:24 Albumin/Globulin Ratio 1.1 % 09/05/19 19:24 Lipase 52 units/L (13-60) 09/05/19 19:24 Urine Color Yellow (Yellow) 09/05/19 Unknown Urine Turbidity Slightly-cloudy (Clear) 09/05/19 Unknown Urine pH 5.0 (5.0-7.0) 09/05/19 Unknown Ur Specific [place] 1.024 (1.003-1.030) 09/05/19 Unknown Urine Protein <15 mg/dl mg/dL (Negative) 09/05/19 Unknown Urine Glucose (UA) Neg mg/dL (Negative) 09/05/19 Unknown Urine Ketones Tr mg/dL (Negative) 09/05/19 Unknown Urine Blood Sm (Negative) 09/05/19 Unknown Urine Nitrite Neg (Negative) 09/05/19 Unknown Urine Bilirubin Neg (Negative) 09/05/19 Unknown Urine Urobilinogen < 2.0 mg/dL (<2.0) 09/05/19 Unknown Ur Leukocyte Esterase Neg (Negative) 09/05/19 Unknown Urine WBC (Auto) 13.0 /HPF (0.0-6.0) H 09/05/19 Unknown Urine RBC (Auto) 8.0 /HPF (0.0-6.0) 09/05/19 Unknown U Epithel Cells (Auto) 2.0 /HPF (0-13.0) 09/05/19 Unknown Hyaline Casts 3 /LPF 09/05/19 Unknown Urine Mucus Few /HPF 09/05/19 Unknown Microbiology: Microbiology 09/05/19 Unknown Urine,Clean Catch Urine Culture - Final NO GROWTH AFTER 48 HOURS Vo/IV: Voiding Method Urinal IV Catheter Type [Right INT / Saline Lock Antecubital] IV Catheter Type [Left Peripheral IV Antecubital] IV Catheter Type [Right Distal INT / Saline Lock Port Antecubital] Active Medications - Current Medications Current Medications: Generic Name Dose Route Start Last Admin Trade Name Freq PRN Reason Stop Dose Admin Acetaminophen 650 mg 09/05/19 22:43 09/06/19 10:26 Tylenol PO 650 mg Q4H PRN Administration Pain MILD(1-3)/Fever >100.5/PAUL Heparin Sodium (Porcine) 5,000 unit 09/06/19 06:00 09/08/19 14:52 Heparin SUB-Q 5,000 unit Q8HR MARY Administration Sodium Chloride 1,000 mls @ 125 mls/hr 09/05/19 22:45 09/07/19 23:21 Nacl 0.9% 1000 Ml IV 125 mls/hr DIRECT MARY Administration Levofloxacin 750 mg 09/08/19 10:00 09/08/19 09:50 Levaquin PO 09/13/19 09:59 750 mg Q24HR MARY Administration Magnesium Hydroxide 30 ml 09/05/19 22:43 Milk Of Magnesia PO Q4H PRN Constipation Morphine Sulfate 1 mg 09/06/19 14:37 09/08/19 14:53 Morphine IV 1 mg Q4H PRN Administration Pain, Moderate (4-6) Ondansetron HCl 4 mg 09/05/19 22:43 09/08/19 05:00 Zofran IV 4 mg Q8H PRN Administration Nausea And Vomiting Pantoprazole Sodium 40 mg 09/08/19 10:00 09/08/19 09:50 Protonix PO 40 mg BID MARY Administration Sodium Chloride 10 ml 09/06/19 10:00 09/08/19 09:50 Sodium Chloride Flush Syringe 10 Ml IV 10 ml BID MARY Administration Sodium Chloride 10 ml 09/05/19 22:43 Sodium Chloride Flush Syringe 10 Ml IV PRN PRN LINE FLUSH Nutrition/Malnutrition Assess - Dietary Evaluation Nutrition/Malnutrition Findings: Nutrition Notes Start: 09/07/19 13:21 Freq: Status: Active Protocol: Document 09/07/19 13:21 LM (Rec: 09/07/19 13:31 LM [email or web address]) Nutrition Notes Need for 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 Pt stated he has not been able to eat since Friday and did not eat breakfast. Pt stated his UBW is 185lb and last weighed this Friday. Pt prefers Ensure clear. Burn Absent Trauma Absent Current % PO Negligible Minimum of two criteria Yes Energy Intake (severe) < or equal to 50% Estimated Energy Requirement > or equal to 5 days Interpretation of Weight Loss (severe) >2% in 1 week #1 Nutrition Diagnosis Malnutrition Etiology abdominal pain As Evidenced by Signs and Symptoms 10% wt loss in 5 days, </= 50% EER for 5 days Is patient on ventilator? No Is Patient Ambulatory and/or Out of Bed Yes REE-([facility]-ambulatory/OOB) [ [id number] [id number]] Calculation Used for Recommendations [facility] Additional Notes Protein: 91-114g (1.2-1.5g/kg) Fluid: 1 ml/kcal Nutrition Intervention Change Diet Order: Continue regular Add Supplement/Snack (indicate name/kcal Ensure Clear mixed toribio TID /protein ) Provides kCal: 720 Provides Protein (gm) 24 Goal #1 Meet at least 80% of energy and protein needs Goal #2 diet/ONS tolerance Anticipated Discharge Needs: regular diet Follow-Up By: 09/09/19 Additional Comments F/U for PO/ONS intakes and tolerance
[2019-09-09] MEDS: SODIUM CHLORIDE 0.9% 1000 ML 1,000 ML IV SCH (01:31)
[2019-09-09] MEDS: ACETAMINOPHEN 325 MG TAB PO PRN ×2 (01:36→06:36)
[2019-09-09] MEDS: ONDANSETRON 4 MG/2 ML INJ IV PRN (06:37)
[2019-09-09] MEDS: HEPARIN 5,000 UNIT/1 ML VIAL SUB-Q SCH ×2 (06:40→14:21)
--- NOTE | 2019-09-09 09:06 | Progress Note ---
Assessment and Plan 1. Esophagitis/duodenitis - etiology unclear. Biopsies pending. On PPI. [place] po well. - august D/C to home from GI standpoint, on PPI, with outpatient f/u in 2-3 wks to f/u on biopsies and labs. Will sign off. Subjective Date of service: 09/09/19 Interval history: Pt feels better. No abd pain or nausea. Eating apple sauce, did not like food here. Objective - Constitutional Vitals: Vital Signs - 12hr 09/08/19 09/08/19 09/09/19 21:12 21:37 00:55 Temperature 98.4 F Pulse Rate 52 L Respiratory 20 Rate Blood Pressure 138/82 O2 Sat by Pulse 97 100 Oximetry 09/09/19 09/09/19 09/09/19 00:59 03:59 04:37 Temperature 97.8 F 98.6 F Pulse Rate 81 49 L Respiratory 20 20 Rate Blood Pressure 145/67 143/61 O2 Sat by Pulse 87 100 Oximetry 09/09/19 08:26 Temperature 98.8 F Pulse Rate 53 L Respiratory 18 Rate Blood Pressure 125/65 O2 Sat by Pulse 97 Oximetry General appearance: Present: no acute distress - EENT Eyes: PERRL, EOM intact ENT: hearing intact - Respiratory Respiratory effort: normal - Gastrointestinal General gastrointestinal: Present: soft, non-tender - Labs CBC & Chem 7: 09/08/19 08:23 09/08/19 08:23 Labs: Abnormal lab results 09/08/19 09/08/19 Range/Units 08:23 08:23 RDW 12.7 L (13.2-15.2) % Lymph % (Auto) 11.7 L (13.4-35.0) % [place] % (Auto) 14.0 H (0.0-7.3) % Lymph # 0.8 L (1.2-5.4) K/mm3 [place] # 1.0 H (0.0-0.8) K/mm3 Seg Neutrophils % 73.9 H (40.0-70.0) % BUN 29 H (9-20) mg/dL Medications & Allergies - Medications Allergies/Adverse Reactions: Allergies No Known Allergies Allergy (Verified 04/04/17 03:46) Home Medications: Home Medications Medication Instructions Recorded Confirmed Last Taken Type No Known Home Medications [No 09/06/19 09/06/19 Unknown History Reported Home Medications] Active Medications: Generic Name Dose Route Start Last Admin Trade Name Freq PRN Reason Stop Dose Admin Acetaminophen 650 mg 09/05/19 22:43 09/09/19 06:36 Tylenol PO 650 mg Q4H PRN Administration Pain MILD(1-3)/Fever >100.5/PAUL Heparin Sodium (Porcine) 5,000 unit 09/06/19 06:00 09/09/19 06:40 Heparin SUB-Q 5,000 unit Q8HR MARY Administration Sodium Chloride 1,000 mls @ 125 mls/hr 09/05/19 22:45 09/09/19 01:31 Nacl 0.9% 1000 Ml IV 125 mls/hr DIRECT MARY Administration Levofloxacin 750 mg 09/08/19 10:00 09/08/19 09:50 Levaquin PO 09/13/19 09:59 750 mg Q24HR MARY Administration Magnesium Hydroxide 30 ml 09/05/19 22:43 Milk Of Magnesia PO Q4H PRN Constipation Morphine Sulfate 1 mg 09/06/19 14:37 09/08/19 21:48 Morphine IV 1 mg Q4H PRN Administration Pain, Moderate (4-6) Ondansetron HCl 4 mg 09/05/19 22:43 09/09/19 06:37 Zofran IV 4 mg Q8H PRN Administration Nausea And Vomiting Pantoprazole Sodium 40 mg 09/08/19 10:00 09/08/19 21:48 Protonix PO 40 mg BID MARY Administration Sodium Chloride 10 ml 09/06/19 10:00 09/08/19 21:48 Sodium Chloride Flush Syringe 10 Ml IV 10 ml BID MARY Administration Sodium Chloride 10 ml 09/05/19 22:43 Sodium Chloride Flush Syringe 10 Ml IV PRN PRN LINE FLUSH
--- NOTE | 2019-09-09 09:21 | Progress Note ---
Assessment and Plan This is a 28 year old man who presents with severe abdominal/flank pain, N/V, found to have NAVJOT. # Acute Kidney Injury: suspect NAVJOT likely pre-renal from poor po intake and N/V. Renal function improved with supportive measures, creatinine down to 1.4. No new labs today - can discontinue IVF, continue PO diet as tolerated - BP reasonable - strict Is/Os - pain control per primary - urine culture NGTD - avoid nephrotoxins - no current indication for HCC CODERS # Abdominal Pain - urine culture NGTD - management per primary, GI - GI recs appreciated, would avoid PPI if able given interstitial injury risk with NAVJOT # Hyperkalemia: improved with IVF, likely related to NAVJOT # Leukocytosis: improved, likely reactive Thank you for this interesting consult, we will continue to follow with you. Subjective Date of service: 09/09/19 Interval history: No acute events noted, patient notes feeling better but with some mild nausea, abdominal pain remaining Objective - Exam Narrative Exam: General appearance: well-developed, well-nourished, appears stated age, no distress EENT: ATNC, mucous membranes moist Neck: Present: neck supple Respiratory: Clear to Auscultation Heart: regular, S1S2 Gastrointestinal: Present: normoactive bowel sounds Integumentary: no rash, warm and dry Neurologic: no focal deficit, no asterixis, CN 3-12 intact Psychiatric: mood/affect appropriate - Vital Signs Vital signs: Vital Signs - 12hr 09/08/19 09/09/19 09/09/19 21:37 00:55 00:59 Temperature 97.8 F Pulse Rate 52 L 81 Respiratory 20 Rate Blood Pressure 145/67 O2 Sat by Pulse 97 100 87 Oximetry 09/09/19 09/09/19 09/09/19 03:59 04:37 08:26 Temperature 98.6 F 98.8 F Pulse Rate 49 L 53 L Respiratory 20 18 Rate Blood Pressure 143/61 125/65 O2 Sat by Pulse 100 97 Oximetry - Lab 09/08/19 08:23 09/08/19 08:23 Most recent lab results Calcium 8.7 mg/dL (8.4-10.2) 09/08/19 08:23 Magnesium 2.30 mg/dL (1.7-2.3) 09/08/19 08:23 Medications & Allergies - Medications Allergies/Adverse Reactions: Allergies No Known Allergies Allergy (Verified 04/04/17 03:46) Home Medications: Home Medications Medication Instructions Recorded Confirmed Last Taken Type No Known Home Medications [No 09/06/19 09/06/19 Unknown History Reported Home Medications] Active Medications: Generic Name Dose Route Start Last Admin Trade Name Freq PRN Reason Stop Dose Admin Acetaminophen 650 mg 09/05/19 22:43 09/09/19 06:36 Tylenol PO 650 mg Q4H PRN Administration Pain MILD(1-3)/Fever >100.5/PAUL Heparin Sodium (Porcine) 5,000 unit 09/06/19 06:00 09/09/19 06:40 Heparin SUB-Q 5,000 unit Q8HR MARY Administration Sodium Chloride 1,000 mls @ 125 mls/hr 09/05/19 22:45 09/09/19 01:31 Nacl 0.9% 1000 Ml IV 125 mls/hr DIRECT MARY Administration Levofloxacin 750 mg 09/08/19 10:00 09/08/19 09:50 Levaquin PO 09/13/19 09:59 750 mg Q24HR MARY Administration Magnesium Hydroxide 30 ml 09/05/19 22:43 Milk Of Magnesia PO Q4H PRN Constipation Morphine Sulfate 1 mg 09/06/19 14:37 09/08/19 21:48 Morphine IV 1 mg Q4H PRN Administration Pain, Moderate (4-6) Ondansetron HCl 4 mg 09/05/19 22:43 09/09/19 06:37 Zofran IV 4 mg Q8H PRN Administration Nausea And Vomiting Pantoprazole Sodium 40 mg 09/08/19 10:00 09/08/19 21:48 Protonix PO 40 mg BID MARY Administration Sodium Chloride 10 ml 09/06/19 10:00 09/08/19 21:48 Sodium Chloride Flush Syringe 10 Ml IV 10 ml BID MARY Administration Sodium Chloride 10 ml 09/05/19 22:43 Sodium Chloride Flush Syringe 10 Ml IV PRN PRN LINE FLUSH
[2019-09-09] MEDS: MORPHINE 2 MG/1 ML INJ IV PRN (10:06)
[2019-09-09] MEDS: PANTOPRAZOLE 40 MG TAB PO SCH (10:07)
[2019-09-09] MEDS: levoFLOXacin 750 MG TAB PO SCH (10:07)
[2019-09-09 12:36] VITALS: BP 158/75
--- NOTE | 2019-09-09 14:26 | Discharge Summary ---
Providers - Providers Date of Admission: 09/05/19 21:59 Date of discharge: 09/09/19 Attending physician: FRIEDA RAMEY 09/05/19 22:43 Consult to Physician [CONS] Routine Comment: Consulting Provider: PALAK GALINDO Physician Instructions: Reason For Exam: NAVJOT, HYPERKALEMIA 09/06/19 13:05 Consult to Physician [CONS] Routine Comment: Consulting Provider: MONSE CODY Physician Instructions: Reason For Exam: gastroenteritis Primary care physician: PHYSICIAN NEONATOLOGY Hospitalization Reason for admission: Intractable nausea vomiting and abdominal pain Condition: Stable Pertinent studies: CT scan of the abdomen unremarkable. GI evaluated,s/p EGD [09/07/2019] Procedures: EGD; Erosive esophagitis distal 10 cm Whitish exudate, biopsied Normal stomach Scattered punched-out erosions and descending duodenum White exudate, biopsied Hospital course: 28-year-old -[place] male admitted through emergency room with intractable nausea and vomiting and abdominal pain. Patient was admitted, symptomatically managed, subsequently evaluated by GI, had EGD which showed erosive esophagitis of distal 10 cm of esophagus, whitish exudate biopsied GI recommend HIV testing. Patient was treated with appropriate medications Also had sepsis by criteria received antibiotics for UTI acute kidney injury, renal function significantly improved Today patient is comfortable no new complaints vital signs stable Strongly advised to avoid NSAID group of medications, patient was advised Protonix Today patient is comfortable no new complaints cleared by GI for discharge Follow-up in the office per schedule Patient is hemodynamically and clinically stable at discharge Discharge diagnosis; --Acute gastroenteritis/abdominal pain. CT scan of the abdomen unremarkable. GI evaluated,s/p EGD [09/07/2019] EGD; Erosive esophagitis distal 10 cm Whitish exudate, biopsied Normal stomach Scattered punched-out erosions and descending duodenum White exudate, biopsied Recommend HIV test[requested] Outpatient autoimmune disease work-up as needed --Sepsis:Patient meets criteria given tachycardia, leukocytosis and diagnosis of UTI. Urine cultures negative to date, complete antibiotics for 5 days --UTI. Antibiotics for 5 days, cultures negative to date --Acute kidney injury. vasomotor nephropathy/resolved Gentle hydration, monitor renal function, avoid nephrotoxins --Hyperkalemia; present on admission, resolved. --Hyponatremia; sodium levels gradually improving resolved --DVT prophylaxis; Lovenox Monitor closely and adjust management as needed Plan of care reviewed with the patient and his nurse GI recommendations noted and appreciated Disposition: DC-01 TO HOME OR SELFCARE Time spent for discharge: 32 MIN Core Measure Documentation - Palliative Care Palliative Care/ Comfort Measures: Not Applicable - Core Measures Any of the following diagnoses?: none Exam - Constitutional Vitals: Temp Pulse Resp BP Pulse Ox 98.8 F 53 L 19 158/75 97 09/09/19 08:26 09/09/19 10:03 09/09/19 10:00 09/09/19 10:03 09/09/19 10:03 General appearance: Present: no acute distress, well-nourished - EENT Eyes: Present: PERRL, EOM intact - Neck Neck: Present: supple, normal ROM - Respiratory Respiratory effort: normal Respiratory: bilateral: diminished, negative: rales, rhonchi, wheezing - Cardiovascular Rhythm: regular Heart Sounds: Present: S1 & S2 - Extremities Extremities: no ischemia, No edema - Abdominal General gastrointestinal: Present: soft, non-tender, non-distended, normal bowel sounds - Integumentary Integumentary: Present: clear, warm - Musculoskeletal Musculoskeletal: strength equal bilaterally - Psychiatric Psychiatric: appropriate mood/affect, cooperative - Neurologic Neurologic: moves all extremities Plan Activity: no restrictions Diet: other (Mechanical soft diet advance as tolerated) Additional Instructions: If you have worsening symptoms contact MD or go to emergency room. Avoid NSAID group of pain medications. Advised to quit recreational drug use Follow up with: PRIMARY CARE, [Primary Care Provider] - 3-5 Days TA ALMANZA MD [Staff Physician] - 14 Days Prescriptions: Pantoprazole [Protonix TAB] 40 mg PO BID #60 tablet
== END 2019-09-09 15:29 | disposition home or self-care (01) | DRG 871 ==
LOC: ED 18:08 → 4A 21:59
PROVIDERS: ADMIT Internal Medicine Geriatric Medicine; ATTEND Internal Medicine
PROC: 0DB98ZX Excision of Duodenum, Via Natural or Artificial Opening Endoscopic, Diagnostic (ICD-10-PCS; principal; 2019-09-07)
PROC: 0DB58ZX Excision of Esophagus, Via Natural or Artificial Opening Endoscopic, Diagnostic (ICD-10-PCS; 2019-09-07)
DX: A41.9 Sepsis, unspecified organism (principal); N17.0 Acute kidney failure with tubular necrosis; N39.0 Urinary tract infection, site not specified; E87.1 Hypo-osmolality and hyponatremia; K22.10 Ulcer of esophagus without bleeding; E87.5 Hyperkalemia; E86.0 Dehydration; K52.9 Noninfective gastroenteritis and colitis, unspecified; K29.80 Duodenitis without bleeding
CPT/HCPCS: 36415; 74176; 76770; 80048; 80053; 81001; 83690; 83735; 85025; 85610; 86689; 87086; 88305; 88312; 88341; 88342; 90686; G0378; J1170; J1200; J1644; J1956; J2270; J2405; J2704; J2765; J3010; J7030; Q0162

== ENCOUNTER 2019-09-13 12:11 | Emergency (ER) | payer OTHER ==
[2019-09-13 12:16] VITALS: BP 133/94
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
== END 2019-09-13 12:50 | disposition left against medical advice (07) ==
LOC: ED 12:11
DX: S39.012A Strain of muscle, fascia and tendon of lower back, initial encounter (principal); S29.012A Strain of muscle and tendon of back wall of thorax, initial encounter; K21.9 Gastro-esophageal reflux disease without esophagitis; X58.XXXA Exposure to other specified factors, initial encounter; Y93.89 Activity, other specified; Y92.89 Other specified places as the place of occurrence of the external cause; Y99.8 Other external cause status
CPT/HCPCS: 99281

== ENCOUNTER 2019-12-01 08:04 | Emergency (ER) | payer SELFPAY ==
[2019-12-01 08:15] VITALS: BP 151/86
[2019-12-01 08:38] LABS: Basophils % (Auto) 0.5 % (0.0-1.8); Eosinophils % (Auto) 0.4 % (0.0-4.3); Hematocrit 43.9 % (35.5-45.6); Hemoglobin 14.8 gm/dl (11.8-15.2); Lymphocytes # (Auto) 1.5 K/mm3 (1.2-5.4); Lymphocytes % (Auto) 17.1 % (13.4-35.0); Mean Corpuscular HGB Conc 34 % (32-34); Mean Corpuscular Volume 89 fl (84-94); Monocytes # (Auto) 0.8 K/mm3 (0.0-0.8); Monocytes % (Auto) 9.2 % (0.0-7.3); Platelet Count 307 K/mm3 (140-440); Red Blood Count 4.93 M/mm3 (3.65-5.03); Red Cell Distribution Width 13.2 % (13.2-15.2)
[2019-12-01 08:55] LABS: Alanine Aminotransferase 17 units/L (7-56); Albumin 4.8 g/dL (3.9-5); BUN/Creatinine Ratio 13; Blood Urea Nitrogen 16 mg/dL (9-20); Calcium 10.2 mg/dL (8.4-10.2); Hemolysis Index 45
[2019-12-01 11:31] LABS: Bilirubin,Urine NEG (Negative); Blood,Urine NEG (Negative); Color,Urine Amber (Yellow); Mucus,Urine 3+ /HPF; Urobilinogen,Urine < 2.0 mg/dL (<2.0)
[2019-12-01 11:34] LABS: Amphetamine Screen,Urine Negative; Benzodiazepines Screen,Urine Negative; Cocaine Screen,Urine Negative; Methadone Screen,Urine Negative
[2019-12-01] MEDS ORDERED: ONDANSETRON 4 MG ODT TAB PO ONE (11:45)
[2019-12-01] MEDS ORDERED: DICYCLOMINE 20 MG TAB PO ONE (11:46)
[2019-12-01 11:49] LABS: Cannabinoid Screen,Urine Positive; Opiate Screen,Urine Positive
--- NOTE | 2019-12-01 12:17 | Emergency Department Report ---
ED Abdominal Pain HPI - General Chief Complaint: Abdominal Pain Stated Complaint: STOMACH PAIN Time Seen by Provider: 12/01/19 11:27 Source: patient Mode of arrival: Ambulatory Limitations: No Limitations - History of Present Illness Initial Comments: 28-year-old -Israeli male presents to the emergency room for abdominal pain x2 days. Patient states that it feels like his acid reflux is flaring up. Patient requesting pain medication and something for his acid reflux. In review of patient's chart it shows that he was on Protonix back in August. Review of patient's chart shows he has a history of GERD renal disease and chronic abdominal pain. Patient social history is he smokes cigarettes and smokes weed. Patient states the last time he smoke weed was 4 days ago. Patient states he usually smokes pretty regular. Patient does admit to nausea. MD Complaint: abdominal pain - Related Data Previous Rx's Medication Instructions Recorded Last Taken Type Pantoprazole [Protonix TAB] 40 mg PO BID #60 tablet 09/09/19 Unknown Rx Dicyclomine [Bentyl] 10 mg PO QID #12 capsule 12/01/19 Unknown Rx Omeprazole 20 mg PO QDAY #30 tablet. 12/01/19 Unknown Rx Ondansetron [Zofran Odt] 4 mg PO Q8HR PRN #8 tab.rapdis 12/01/19 Unknown Rx Allergies Allergy/AdvReac Type Severity Reaction Status Date / Time No Known Allergies Allergy Verified 04/04/17 03:46 ED Review of Systems ROS: Stated complaint: STOMACH PAIN Other details as noted in HPI ED Past Medical Hx - Past Medical History Previous Medical History?: Yes Hx Hypertension: No Hx Heart Attack/AMI: No Hx GERD: Yes Hx Liver Disease: No Hx Renal Disease: No Hx Sickle Cell Disease: No Hx Seizures: No Hx Asthma: No Hx COPD: No Hx HIV: No Additional medical history: chronic abd pain - Surgical History Past Surgical History?: No Hx Pacemaker: No Hx Internal Defibrillator: No - Social History Smoking Status: Never Smoker Substance Use Type: None - Medications Home Medications: Home Medications Medication Instructions Recorded Confirmed Last Taken Type Pantoprazole [Protonix TAB] 40 mg PO BID #60 tablet 09/09/19 Unknown Rx Dicyclomine [Bentyl] 10 mg PO QID #12 capsule 12/01/19 Unknown Rx Omeprazole 20 mg PO QDAY #30 tablet. 12/01/19 Unknown Rx Ondansetron [Zofran Odt] 4 mg PO Q8HR PRN #8 tab.lilo 12/01/19 Unknown Rx ED Physical Exam - General Limitations: No Limitations General appearance: alert, in no apparent distress - Head Head exam: Present: atraumatic, normocephalic - Eye Eye exam: Present: normal appearance - ENT ENT exam: Present: mucous membranes moist - Neck Neck exam: Present: normal inspection - Respiratory Respiratory exam: Present: normal lung sounds bilaterally. Absent: respiratory distress - Cardiovascular Cardiovascular Exam: Present: regular rate, normal rhythm. Absent: systolic murmur, diastolic murmur, rubs, gallop - GI/Abdominal GI/Abdominal exam: Present: soft, normal bowel sounds - Rectal Rectal exam: Present: deferred - Extremities Exam Extremities exam: Present: normal inspection - Back Exam Back exam: Present: normal inspection - Neurological Exam Neurological exam: Present: alert, oriented X3 - Psychiatric Psychiatric exam: Present: normal affect, normal mood - Skin Skin exam: Present: warm, dry, intact, normal color. Absent: rash ED Course Vital Signs 12/01/19 08:13 Temperature 98.2 F Pulse Rate 62 Respiratory 16 Rate Blood Pressure 151/86 O2 Sat by Pulse 96 Oximetry ED Medical Decision Making - Lab Data Result diagrams: 12/01/19 08:20 12/01/19 08:20 Laboratory Tests 12/01/19 12/01/19 12/01/19 08:20 08:20 08:20 WBC 8.7 RBC 4.93 Hgb 14.8 Hct 43.9 MCV 89 MCH 30 MCHC 34 RDW 13.2 Plt Count 307 Lymph % (Auto) 17.1 [place] % (Auto) 9.2 H Eos % (Auto) 0.4 Baso % (Auto) 0.5 Lymph # 1.5 [place] # 0.8 Eos # 0.0 Baso # 0.0 Seg Neutrophils % 72.8 H Seg Neutrophils # 6.3 Sodium 141 Potassium 4.6 Chloride 100.2 Carbon Dioxide 25 Anion Gap 20 BUN 16 Creatinine 1.2 Estimated GFR > 60 BUN/Creatinine Ratio 13 Glucose 160 H Calcium 10.2 Total Bilirubin 0.50 AST 21 ALT 17 Alkaline Phosphatase 148 H Total Protein 8.7 H Albumin 4.8 Albumin/Globulin Ratio 1.2 Urine Color Urine Turbidity Urine pH Ur Specific [place] Urine Protein Urine Glucose (UA) Urine Ketones Urine Blood Urine Nitrite Ur Reducing Substances Urine Bilirubin Urine Ictotest Urine Urobilinogen Ur Leukocyte Esterase Urine WBC (Auto) Urine RBC (Auto) U Epithel Cells (Auto) Urine Mucus Urine Opiates Screen Urine Methadone Screen Ur Barbiturates Screen Ur Phencyclidine Scrn Ur Amphetamines Screen U Benzodiazepines Scrn Urine Cocaine Screen U Marijuana (THC) Screen Drugs of Abuse Note Plasma/Serum Alcohol < 0.01 12/01/19 12/01/19 Unknown Unknown WBC RBC Hgb Hct MCV MCH MCHC RDW Plt Count Lymph % (Auto) [place] % (Auto) Eos % (Auto) Baso % (Auto) Lymph # [place] # Eos # Baso # Seg Neutrophils % Seg Neutrophils # Sodium Potassium Chloride Carbon Dioxide Anion Gap BUN Creatinine Estimated GFR BUN/Creatinine Ratio Glucose Calcium Total Bilirubin AST ALT Alkaline Phosphatase Total Protein Albumin Albumin/Globulin Ratio Urine Color Meg Urine Turbidity Clear Urine pH 6.0 Ur Specific [place] 1.032 H Urine Protein 100 mg/dl Urine Glucose (UA) Neg Urine Ketones 20 Urine Blood Neg Urine Nitrite Neg Ur Reducing Substances Not Reportable Urine Bilirubin Neg Urine Ictotest Not Reportable Urine Urobilinogen < 2.0 Ur Leukocyte Esterase Neg Urine WBC (Auto) 6.0 Urine RBC (Auto) 4.0 U Epithel Cells (Auto) 1.0 Urine Mucus 3+ Urine Opiates Screen Positive Urine Methadone Screen Negative Ur Barbiturates Screen Negative Ur Phencyclidine Scrn Negative Ur Amphetamines Screen Negative U Benzodiazepines Scrn Negative Urine Cocaine Screen Negative U Marijuana (THC) Screen Positive Drugs of Abuse Note Disclamer Plasma/Serum Alcohol - Medical Decision Making 28-year-old -[place]i male presents to the emergency room for abdominal pain x2 days. Patient states that it feels like his acid reflux is flaring up. Patient requesting pain medication and something for his acid reflux. In review of patient's chart it shows that he was on Protonix back in August. Review of patient's chart shows he has a history of GERD renal disease and chronic abdominal pain. Patient social history is he smokes cigarettes and smokes weed. Patient states the last time he smoke weed was 4 days ago. Patient states he usually smokes pretty regular. Patient does admit to nausea. Patient was given Bentyl and Zofran. Patient be discharged home on Bentyl and omeprazole. Patient is instructed to stop smoking cannabis as this can cause nausea vomiting and abdominal pains. Discussed patient is to follow-up with a primary care provider. Critical care attestation.: If time is entered above; I have spent that time in minutes in the direct care of this critically ill patient, excluding procedure time. ED Disposition Clinical Impression: Chronic abdominal pain, Cannabis hyperemesis syndrome concurrent with and due to cannabis abuse, GERD (gastroesophageal reflux disease) Disposition: - TO HOME OR SELFCARE Is pt being admited?: No Does the pt Need Aspirin: No Condition: Stable Instructions: Abdominal Pain (ED) Additional Instructions: Please discontinue smoking weed as this causes your abdominal pain and nausea. Take your medications as prescribed. Follow-up with a primary care provider. Increase your fluid intake. Prescriptions: Dicyclomine [Bentyl] 10 mg PO QID #12 capsule Omeprazole 20 mg PO QDAY #30 tablet. Ondansetron [Zofran Odt] 4 mg PO Q8HR PRN #8 tab.rapdis PRN Reason: Nausea And Vomiting Referrals: PRIMARY CARE, [Primary Care Provider] - 3-5 Days [facility] [Provider Group] - 3-5 Days Forms: Work/School Release Form(ED)
== END 2019-12-01 13:22 | disposition home or self-care (01) ==
LOC: ED 08:04
DX: K21.9 Gastro-esophageal reflux disease without esophagitis (principal); F12.188 Cannabis abuse with other cannabis-induced disorder; R10.9 Unspecified abdominal pain; G89.29 Other chronic pain; F17.210 Nicotine dependence, cigarettes, uncomplicated; Z79.899 Other long term (current) drug therapy
CPT/HCPCS: 36415; 80053; 80307; 80320; 81001; 85025; G0480; Q0162

== ENCOUNTER 2020-01-03 09:53 | Emergency (ER) | payer SELFPAY ==
[2020-01-03 10:41] LABS: Basophils % (Auto) 0.3 % (0.0-1.8); Eosinophils % (Auto) 0.1 % (0.0-4.3); Hematocrit 44.2 % (35.5-45.6); Hemoglobin 15.2 gm/dl (11.8-15.2); Lymphocytes % (Auto) 9.4 % (13.4-35.0); Mean Corpuscular HGB Conc 35 % (32-34); Mean Corpuscular Volume 89 fl (84-94); Monocytes # (Auto) 0.9 K/mm3 (0.0-0.8); Monocytes % (Auto) 8.1 % (0.0-7.3); Platelet Count 355 K/mm3 (140-440); Red Blood Count 4.97 M/mm3 (3.65-5.03); Red Cell Distribution Width 13.6 % (13.2-15.2)
[2020-01-03 11:04] LABS: Alanine Aminotransferase 17 units/L (7-56); Albumin 4.6 g/dL (3.9-5); BUN/Creatinine Ratio 18; Blood Urea Nitrogen 21 mg/dL (9-20); Calcium 10.4 mg/dL (8.4-10.2); Hemolysis Index 42
[2020-01-03] MEDS ORDERED: MORPHINE 4 MG/1 ML INJ IV ONE (11:08)
[2020-01-03] MEDS ORDERED: ONDANSETRON 4 MG/2 ML INJ IV ONE (11:08)
[2020-01-03] MEDS ORDERED: SODIUM CHLORIDE 0.9% 1000 ML 1,000 ML IV ONE (11:08)
[2020-01-03] MEDS ORDERED: PANTOPRAZOLE 40 MG INJ IV ONE (11:08)
--- NOTE | 2020-01-03 11:47 | Emergency Department Report ---
ED Abdominal Pain HPI - General Chief Complaint: Abdominal Pain Stated Complaint: ABD PAIN PUI?: No Time Seen by Provider: 01/03/20 10:56 Source: patient Mode of arrival: Ambulatory Limitations: No Limitations - History of Present Illness Initial Comments: This is a 29-year-old male with history of erosive esophagitis who presents with nausea vomiting and abdominal pain for 1 week. He has lost 15 pounds in the past week. Since May for the past 7 months, Mr. Espana has had recurrent abdominal pain vomiting. Currently pain is in the epigastric region with heartburn. Moderately severe. 7 out of 10 in severity. Last week he underwent testing for H. pylori. He stated that the medication preparation prior to the exam really helped his symptoms. He has been unable to obtain follow-up with GI specialist. He has had recent negative HIV test. He denies use of tobacco, marijuana or alcohol. Past medical history obtained from EMR. Patient was admitted in August 2021 the hospitalist service with GI consultation. He had a EGD performed at that time which revealed erosive exudative esophagitis. MD Complaint: abdominal pain -: Gradual Location: epigastric Radiation: chest Severity: moderate Severity scale (0 -10): 7 Consistency: constant Worsens With: eating Context: other (illness for 7 months hx of erosive esophat) Associated Symptoms: nausea, vomiting. denies: diarrhea, chills, constipation, dysuria, hematemesis, hematochezia, melena - Related Data Previous Rx's Medication Instructions Recorded Last Taken Type Pantoprazole [Protonix TAB] 40 mg PO BID #60 tablet 09/09/19 Unknown Rx Dicyclomine [Bentyl] 10 mg PO QID #12 capsule 12/01/19 Unknown Rx Omeprazole 20 mg PO QDAY #30 tablet. 12/01/19 Unknown Rx Ondansetron [Zofran Odt] 4 mg PO Q8HR PRN #8 tab.rapdis 12/01/19 Unknown Rx Omeprazole 20 mg PO DAILY #30 capsule. 01/03/20 Unknown Rx Promethazine [Phenergan] 25 mg PO Q6HR PRN #10 tab 01/03/20 Unknown Rx Allergies Allergy/AdvReac Type Severity Reaction Status Date / Time No Known Allergies Allergy Verified 04/04/17 03:46 ED Review of Systems ROS: Stated complaint: ABD PAIN Other details as noted in HPI Comment: All other systems reviewed and negative Constitutional: denies: fever, malaise Cardiovascular: denies: chest pain Gastrointestinal: abdominal pain, nausea, vomiting, diarrhea. denies: constipation ED Past Medical Hx - Past Medical History Previous Medical History?: Yes Hx Hypertension: No Hx Heart Attack/AMI: No Hx GERD: Yes Hx Liver Disease: No Hx Renal Disease: No Hx Sickle Cell Disease: No Hx Seizures: No Hx Asthma: No Hx COPD: No Hx HIV: No Additional medical history: chronic abd pain - Surgical History Hx Pacemaker: No Hx Internal Defibrillator: No - Family History Family history: no significant - Social History Smoking Status: Never Smoker Substance Use Type: None - Medications Home Medications: Home Medications Medication Instructions Recorded Confirmed Last Taken Type Pantoprazole [Protonix TAB] 40 mg PO BID #60 tablet 09/09/19 Unknown Rx Dicyclomine [Bentyl] 10 mg PO QID #12 capsule 12/01/19 Unknown Rx Omeprazole 20 mg PO QDAY #30 tablet. 12/01/19 Unknown Rx Ondansetron [Zofran Odt] 4 mg PO Q8HR PRN #8 tab.rapdis 12/01/19 Unknown Rx Omeprazole 20 mg PO DAILY #30 capsule. 01/03/20 Unknown Rx Promethazine [Phenergan] 25 mg PO Q6HR PRN #10 tab 01/03/20 Unknown Rx ED Physical Exam - General Limitations: No Limitations General appearance: alert, in no apparent distress, other (rubbing abdomen appears uncomfortable) - Head Head exam: Present: atraumatic, normocephalic - Eye Eye exam: Present: normal appearance - ENT ENT exam: Present: mucous membranes moist - Neck Neck exam: Present: normal inspection, full ROM - Respiratory Respiratory exam: Present: normal lung sounds bilaterally. Absent: respiratory distress, wheezes, rales, rhonchi - Cardiovascular Cardiovascular Exam: Present: regular rate, normal rhythm, normal heart sounds. Absent: systolic murmur, diastolic murmur, rubs, gallop - GI/Abdominal GI/Abdominal exam: Present: soft, normal bowel sounds. Absent: distended, tenderness, guarding, rebound - Rectal Rectal exam: Present: deferred - Extremities Exam Extremities exam: Present: normal inspection - Neurological Exam Neurological exam: Present: alert, oriented X3 - Psychiatric Psychiatric exam: Present: normal affect, normal mood - Skin Skin exam: Present: warm, dry, intact, normal color. Absent: rash ED Medical Decision Making - Lab Data Result diagrams: 01/03/20 10:17 01/03/20 10:17 - Medical Decision Making This is a 29-year-old male with history of erosive esophagitis who presents with epigastric heartburn pain for 2 weeks. Chemistry reflective of volume contraction. Hyperchloremia increased anion gap noted. No leukocytosis. No fever or abdominal tenderness to suggest peritonitis or acute inflammatory process. Patient felt much better after supportive care in the emergency department which included IV fluids, IV antiemetic, IV PPI and IV analgesia. Patient states "I have not had that good of sleep in 2 weeks." Patient was able to tolerate several cups of water prior to discharge. I have prescribed promethazine and omeprazole. I strongly encouraged him to complete the entire 30-day prescription. Critical care attestation.: If time is entered above; I have spent that time in minutes in the direct care of this critically ill patient, excluding procedure time. ED Disposition Clinical Impression: Erosive esophagitis, Acute epigastric pain Disposition: DC- TO HOME OR SELFCARE Is pt being admited?: No Does the pt Need Aspirin: No Condition: Stable Instructions: Diet for Ulcers and Gastritis (ED), Gastroesophageal Reflux Disease (ED) Prescriptions: Omeprazole 20 mg PO DAILY #30 capsule.dr Nietoazine [Phenergan] 25 mg PO Q6HR PRN #10 tab PRN Reason: Nausea Referrals: [facility] MD MELISSA [Primary Care Provider] - 3-5 Days CHELSEA RUSH MD [Staff Physician] - 3-5 Days
[2020-01-03 14:05] VITALS: BP 131/92
== END 2020-01-03 14:04 | disposition home or self-care (01) ==
LOC: ED 09:53
DX: K22.10 Ulcer of esophagus without bleeding (principal); R10.13 Epigastric pain; K21.9 Gastro-esophageal reflux disease without esophagitis; Z79.899 Other long term (current) drug therapy
CPT/HCPCS: 36415; 80053; 82962; 85025; 96361; 96374; 96375; 99284; C9113; J2270; J2405; J7030

== ENCOUNTER 2021-07-14 17:44 | Emergency (ER) | payer SELFPAY ==
[2021-07-14 18:04] VITALS: BP 113/68
== END 2021-07-14 22:19 | disposition left against medical advice (07) ==
LOC: ED 17:44
DX: K25.9 Gastric ulcer, unspecified as acute or chronic, without hemorrhage or perforation (principal); Z53.21 Procedure and treatment not carried out due to patient leaving prior to being seen by health care provider

== ENCOUNTER 2021-11-07 13:00 | Emergency (ER) | payer BC ==
[2021-11-07 16:25] VITALS: BP 149/85
--- NOTE | 2021-11-07 17:04 | XRay Report ---
CHEST 2 VIEWS INDICATION: chest pain. COMPARISON: None. FINDINGS: Support devices: None. Heart: Within normal limits. Lungs/Pleura: No acute air space or interstitial disease. No significant pleural effusion. IMPRESSION: No acute findings. Signer Name: Nam Dangelo MD Signed: 11/07/2021 4:59 PM Workstation Name: [id number]
[2021-11-07 17:51] LABS: Hematocrit 52.8 % (35.5-45.6); Mean Corpuscular HGB Conc 32 % (32-34); Mean Corpuscular Volume 93 fl (84-94); Platelet Count 288 K/mm3 (140-440); Red Cell Distribution Width 13.2 % (13.2-15.2)
[2021-11-07 18:05] LABS: Alanine Aminotransferase 19 units/L (7-56); Albumin 5.4 g/dL (3.9-5); BUN/Creatinine Ratio 16; Blood Urea Nitrogen 25 mg/dL (9-20); Calcium 10.6 mg/dL (8.4-10.2); Hemolysis Index 10
[2021-11-07] MEDS ORDERED: FAMOTIDINE 20 MG/2 ML INJ IV ONE (18:06)
[2021-11-07] MEDS ORDERED: diphenhydrAMINE 50 MG/ML VIAL IV ONE (18:06)
[2021-11-07] MEDS ORDERED: METOCLOPRAMIDE 10 MG/2 ML INJ IV ONE (18:06)
[2021-11-07] MEDS ORDERED: KETOROLAC 30 MG/1 ML INJ IV ONE (18:06)
[2021-11-07] MEDS ORDERED: SODIUM CHLORIDE 0.9% 1000 ML 1,000 ML IV ONE (18:07)
--- NOTE | 2021-11-07 19:28 | Emergency Department Report ---
ED N/V/D HPI - General Chief complaint: Chest Pain Stated complaint: ULCER FLAIR Source: patient Mode of arrival: Ambulatory Limitations: No Limitations - History of Present Illness Initial comments: Patient is an 30-year-old -[place] male with a history of GERD who prese nts to the ED with complaint of acute onset persistent intermittent nausea and vomiting, epigastric and diffuse chest pain for the last 2 days. Patient states that he has had multiple nausea and vomiting episodes in the last 12 hours. Patient denies hematemesis, hemoptysis, cough, sore throat, diarrhea, dysuria, urinary frequency and urgency, but also and sinus congestion, headache, shortness of breath, neck pain, back pain, dizziness, syncope or lightheadedness. MD complaint: nausea, vomiting, abdominal pain (Epigastric pain, chest wall pain) -: Sudden, days(s) (2) Description of Vomiting: food contents, watery Associated Abdominal Pain: Yes (epigastric) Location: epigastric Radiation: none Severity: severe Pain Scale: 7 Quality: aching, sharp Consistency: intermittent Improves with: none Worsens with: eating, vomiting Context: possible food poisoning Associated Symptoms: denies other symptoms, myalgias, chest pain, loss of appetite, malaise, nausea/vomiting. denies: cough, diaphoresis, fever/chills, headaches, rash, dysuria, shortness of breath, other - Related Data Previous Rx's Medication Instructions Recorded Last Taken Type Dicyclomine [Bentyl] 10 mg PO QID #12 capsule 12/01/19 Unknown Rx Omeprazole 20 mg PO QDAY #30 tablet. 12/01/19 Unknown Rx Omeprazole 20 mg PO DAILY #30 capsule. 01/03/20 Unknown Rx Promethazine [Phenergan] 25 mg PO Q6HR PRN #10 tab 01/03/20 Unknown Rx Famotidine [Pepcid] 20 mg PO BID #60 tablet 11/07/21 Unknown Rx Ondansetron [Zofran ODT TAB] 4 mg PO Q8HR PRN #20 tab.rapdis 11/07/21 Unknown Rx Pantoprazole [Protonix TAB] 40 mg PO BID #60 tablet 11/07/21 Unknown Rx Allergies Allergy/AdvReac Type Severity Reaction Status Date / Time No Known Allergies Allergy Verified 04/04/17 03:46 ED Review of Systems ROS: Stated complaint: ULCER FLAIR Other details as noted in HPI Constitutional: denies: chills, fever Eyes: denies: eye pain, eye discharge, vision change ENT: denies: ear pain, throat pain Respiratory: denies: cough, shortness of breath, wheezing Cardiovascular: chest pain. denies: palpitations Endocrine: no symptoms reported Gastrointestinal: abdominal pain, nausea, vomiting. denies: diarrhea Genitourinary: denies: urgency, dysuria Musculoskeletal: arthralgia, myalgia. denies: back pain, joint swelling Skin: denies: rash, lesions Neurological: denies: headache, weakness, paresthesias Psychiatric: denies: anxiety, depression Hematological/Lymphatic: denies: easy bleeding, easy bruising ED Past Medical Hx - Past Medical History Previous Medical History?: Yes Hx Hypertension: No Hx Heart Attack/AMI: No Hx GERD: Yes Hx Liver Disease: No Hx Renal Disease: No Hx Sickle Cell Disease: No Hx Seizures: No Hx Asthma: No Hx COPD: No Hx HIV: No Additional medical history: chronic abd pain, Gastric ulcers - Surgical History Past Surgical History?: Yes Hx Pacemaker: No Hx Internal Defibrillator: No Additional Surgical History: EGD - Social History Smoking Status: Current Every Day Smoker Substance Use Type: Alcohol, Marijuana - Medications Home Medications: Home Medications Medication Instructions Recorded Confirmed Last Taken Type Dicyclomine [Bentyl] 10 mg PO QID #12 capsule 12/01/19 Unknown Rx Omeprazole 20 mg PO QDAY #30 tablet. 12/01/19 Unknown Rx Omeprazole 20 mg PO DAILY #30 capsule. 01/03/20 Unknown Rx Promethazine [Phenergan] 25 mg PO Q6HR PRN #10 tab 01/03/20 Unknown Rx Famotidine [Pepcid] 20 mg PO BID #60 tablet 11/07/21 Unknown Rx Ondansetron [Zofran ODT TAB] 4 mg PO Q8HR PRN #20 tab.rapdis 11/07/21 Unknown Rx Pantoprazole [Protonix TAB] 40 mg PO BID #60 tablet 11/07/21 Unknown Rx ED Physical Exam - General Limitations: No Limitations General appearance: alert, in no apparent distress - Head Head exam: Present: atraumatic, normocephalic, normal inspection - Eye Eye exam: Present: normal appearance, PERRL, EOMI Pupils: Present: normal accommodation - ENT ENT exam: Present: normal exam, normal orophraynx, mucous membranes moist, TM's normal bilaterally, normal external ear exam - Neck Neck exam: Present: normal inspection, full ROM. Absent: tenderness - Respiratory Respiratory exam: Present: normal lung sounds bilaterally, chest wall tenderness (palpable reproducible diffuse chest wall tenderness). Absent: respiratory distress, wheezes, rales, rhonchi, accessory muscle use, decreased breath sounds, prolonged expiratory - Cardiovascular Cardiovascular Exam: Present: normal rhythm, bradycardia, normal heart sounds. Absent: systolic murmur, diastolic murmur, rubs, gallop - GI/Abdominal GI/Abdominal exam: Present: soft, normal bowel sounds. Absent: tenderness, guarding, rebound, hyperactive bowel sounds, hypoactive bowel sounds, organomegaly - Extremities Exam Extremities exam: Present: normal inspection, full ROM, normal capillary refill - Back Exam Back exam: Present: normal inspection, full ROM. Absent: tenderness, CVA tenderness (R), CVA tenderness (L), muscle spasm, paraspinal tenderness, ve rtebral tenderness, rash noted - Neurological Exam Neurological exam: Present: alert, oriented X3, CN II-XII intact, normal gait, reflexes normal - Psychiatric Psychiatric exam: Present: normal affect, normal mood - Skin Skin exam: Present: warm, dry, intact, normal color. Absent: rash ED Course Vital Signs 11/07/21 16:22 Temperature 98.6 F Pulse Rate 53 L Respiratory 18 Rate Blood Pressure 149/85 [Right] O2 Sat by Pulse 100 Oximetry ED Medical Decision Making - Lab Data Result diagrams: 11/07/21 17:26 11/07/21 17:26 - Radiology Data Radiology results: report reviewed, image reviewed [facility] [address] [place] [address] XRay Report Signed Patient: ADRIANA AKINS II R#: [id number] : 1990 Acct:[id number] Age/Sex: 30 / M ADM Date: 11/07/21 Loc: ED Attending Dr: Ordering Physician: ROSALVA SANTANA Date of Service: 11/07/21 Procedure(s): XR chest routine 2V Accession Number(s): [id number] cc: ROSALVA SANTANA Fluoro Time In Minutes: CHEST 2 VIEWS INDICATION: chest pain. COMPARISON: None. FINDINGS: Support devices: None. Heart: Within normal limits. Lungs/Pleura: No acute air space or interstitial disease. No significant pleural effusion. IMPRESSION: No acute findings. Signer Name: Nam Dangelo MD Signed: 11/07/2021 4:59 PM Workstation Name: [id number] Transcribed By: ES Dictated By: Nam Dangelo MD Electronically Authenticated By: Nam Dangelo MD Signed Date/Time: 11/07/211658 DD/ 58 TD/TT: - Medical Decision Making This is an 30-year-old -[place] male with a history of GERD who presents to the ED with complaint of acute onset persistent intermittent nausea and vomiting, epigastric and diffuse chest pain for the last 2 days. Patient states that he has had multiple nausea and vomiting episodes in the last 12 hours. In the ED, patient is alert and oriented x3 and is not in any distress. The lab test results showed acute leukocytosis of 13,500, BUN of 25 and creatinine 1.6 consistent with dehydration. Patient was treated in the ED with antiemetics, antacids, also received normal saline 1 L IV bolus x1. Chest x-ray showed no acute cardiopulmonary abnormalities or pneumonitis. On reevaluation, patient felt better, patient is hemodynamically stable. Patient was discharged home on medications and advised to maintain a clear liquid diet for 12 to 24 hours, while taking medications and follow-up with his primary care physician in 5 to 7 days for reevaluation. Patient was advised return to the ED immediately if symptoms get worse. - Differential Diagnosis Viral gastroenteritis; dehydration; costochondritis; GERD Critical care attestation.: If time is entered above; I have spent that time in minutes in the direct care of this critically ill patient, excluding procedure time. ED Disposition Clinical Impression: Viral gastroenteritis, Acute dehydration, Nausea and vomiting in adult, Acute costochondritis GERD (gastroesophageal reflux disease) Qualifiers: Esophagitis presence: esophagitis presence not specified Qualified Code(s): K21.9 - Gastro-esophageal reflux disease without esophagitis Disposition: 01 HOME / SELF CARE / HOMELESS Is pt being admited?: No Does the pt Need Aspirin: No Condition: Stable Instructions: Costochondritis, [id number], Dehydration, Adult, [id number], Heartburn, Hqik-wy-Llgo, Viral Gastroenteritis, Adult, [id number], Nausea and Vomiting, Adult, [id number]-[id number], Gastroesophageal Reflux Disease, Adult, Ptyv-vj-Oeqz Additional Instructions: All lab test results were reviewed and showed dehydration. Chest x-ray showed no acute cardiopulmonary abnormalities or pneumonitis. Therefore maintain a clear liquid diet for 12 to 24 hours, drink plenty of fluids, take medications as advised and follow-up with your primary care physician in 5 to 7 days for reevaluation. Return to the ED immediately if symptoms get worse. Prescriptions: Famotidine [Pepcid] 20 mg PO BID #60 tablet Pantoprazole [Protonix TAB] 40 mg PO BID #60 tablet Ondansetron [Zofran ODT TAB] 4 mg PO Q8HR PRN #20 tab.rapdis PRN Reason: Nausea And Vomiting Referrals: [facility] [Provider Group] - 3-5 Days Forms: Work/School Release Form(ED) Time of Disposition: 19:32 Print Language: [place] CITIZEN
--- NOTE | 2021-11-08 13:47 | Electrocardiograph Report ---
[facility] Test Date: 2021-11-07 Test Time: 16:30:46 Pat Name: ADRIANA AKINS Department: Room: Gender: M Hog Handler: GRABIEL : 1990 Requested By: BRITTA VANG Order Number: [id number] Reading MD: Jeannette Tobin Measurements Intervals Alex Rate: 49 P: 64 OR: 139 QRS: 75 QRSD: 91 T: 64 QT: 456 QTc: 412 Interpretive Statements Sinus bradycardia No previous ECG available for comparison Electronically Signed On 11-08-2021 13:47:00 EDT by Jeannette Tobin
== END 2021-11-07 19:44 | disposition home or self-care (01) ==
LOC: ED 13:00
DX: M94.0 Chondrocostal junction syndrome [Tietze] (principal); A08.4 Viral intestinal infection, unspecified; R11.2 Nausea with vomiting, unspecified; E86.0 Dehydration; K21.9 Gastro-esophageal reflux disease without esophagitis; Z98.890 Other specified postprocedural states; F17.290 Nicotine dependence, other tobacco product, uncomplicated
CPT/HCPCS: 36415; 71046; 80053; 84484; 85027; 93005; 96361; 96374; 96375; 99284; J1200; J1885; J2765; J3490; J7030